=== PATIENT | male | born 1935 | race Caucasian/White ===

== ENCOUNTER 2016-04-30 22:04 | Inpatient (IN) | payer MEDICARE, OTHER ==
[~2016-04-30] VITALS: Ht 170.2 cm; Wt 100.3 kg
[~2016-04-30 22:04] MED LIST: AMOX1TAB61 PO; CARV12.52 PO; DIGO250T PO; GLIM4TAB2 PO; LISI-334 PO; METF500T4 PO; WARF5TAB7 PO; ZOLP5TAB4 PO
--- NOTE | 2016-04-30 23:35 | PHYS DOC ---
Past Medical History Past Medical History: A-Fib, Diabetes-Type II Past Surgical History: Pacemaker Alcohol Use: Heavy Drug Use: None Adult General Chief Complaint Chief Complaint: MECHANICAL FALL HPI HPI Patient is a 80 year old female who presents with frequent falls. Per family, patient fell 4 times at home today due to weakness. Patient reports that he believes he passed out a couple days times. He denies any pain at this time. He says he did not hurt himself when he fell. He does report some shortness of breath recently, although not at this particular time. Per EMS, patient's glucose was 58 on arrival; he was given D50 with subsequent improvement. No other acute complaints. Review of Systems Review of Systems Constitutional: Frequent falls. Denies fever or chills Eyes: Denies change in visual acuity or eye pain HENT: Denies nasal congestion or sore throat Respiratory: Intermittent shortness of breath Cardiovascular: Denies chest pain GI: Denies abdominal pain, nausea, vomiting, bloody stools or diarrhea : Denies dysuria or hematuria Musculoskeletal: Denies back pain or joint pain Integument: Denies rash or skin lesions Neurologic: Denies headache, focal weakness or sensory changes Current Medications Current Medications Current Medications Medications (Trade) Dose Ordered Sig/Jos Start Time Stop Time Status Last Admin Dose Admin Calcium Gluconate 1,000 mg 1X ONCE 05/01/16 02:30 05/01/16 02:31 DC 05/01/16 02:30 1,000 MG Dextrose 25 gm 1X ONCE 05/01/16 02:30 05/01/16 02:31 DC 05/01/16 02:38 25 GM Furosemide (Lasix) 40 mg 1X ONCE 05/01/16 02:30 05/01/16 02:31 DC 05/01/16 02:47 40 MG Insulin Human Regular (Novolin R Vial) 10 unit 1X ONCE 05/01/16 02:30 05/01/16 02:31 DC 05/01/16 02:37 10 UNIT Allergies Allergies Allergies Coded Allergies Type Severity Reaction Last Updated Verified No Known Drug Allergies 08/29/13 No Physical Exam Physical Exam Constitutional: Well developed, well nourished, no acute distress, non-toxic appearance HENT: Normocephalic, atraumatic, bilateral external ears normal Eyes: EOMI, conjunctiva normal, no discharge Neck: Normal range of motion, no stridor Cardiovascular: Heart rate normal, regular rhythm, no murmur Lungs & Thorax: Bilateral breath sounds clear to auscultation Abdomen: Bowel sounds normal, soft, non-distended, no TTP Skin: Warm, dry, no erythema, no rash Back: No midline tenderness, no stepoff or deformity Extremities: No obvious deformity. BLE edema Neurologic: Alert and oriented X 3, speech slightly garbled but family reports this is baseline, motor strength and sensation to light touch intact and symmetrical, no gross deficits noted Current Patient Data Vital Signs Vital Signs Date Time Temp Pulse Resp B/P Pulse Ox O2 Delivery O2 Flow Rate FiO2 05/01/16 01:04 92 20 121/62 96 Room Air 04/30/16 22:10 97.5 97.5 Lab Values Laboratory Tests Test 04/30/16 02:45 04/30/16 22:55 05/01/16 00:20 05/01/16 02:28 Urine Collection Type Unknown Urine Color Yellow Urine Clarity Clear Urine pH 5.0 Urine Specific [place] 1.020 Urine Protein Negativemg/dL (NEG-TRACE) Urine Glucose (UA) Negativemg/dL (NEG) Urine Ketones (Stick) Negativemg/dL (NEG) Urine Blood Large (NEG) Urine Nitrite Negative (NEG) Urine Bilirubin Negative (NEG) Urine Urobilinogen Dipstick 0.2mg/dL (0.2 mg/dL) Urine Leukocyte Esterase Negative (NEG) Urine RBC >40/HPF (0-2) Urine WBC 1-4/HPF (0-4) Urine Squamous Epithelial Cells Occ/LPF Urine Bacteria 0/HPF (0-FEW) Glucose (Fingerstick) 111mg/dL (70-99) H 58mg/dL (70-99) L White Blood Count 7.7x10^3/uL (4.0-11.0) Red Blood Count 3.79x10^6/uL (4.30-5.70) L Hemoglobin 11.0g/dL (13.0-17.5) L Hematocrit 34.4% (39.0-53.0) L Mean Corpuscular Volume 91fL (79-100) Mean Corpuscular Hemoglobin 29pg (25-35) Mean Corpuscular Hemoglobin Concent 32g/dL (31-37) Red Cell Distribution Width 17.1% (11.5-14.5) H Platelet Count 151x10^3/uL (140-400) Neutrophils (%) (Auto) 75% (31-73) H Lymphocytes (%) (Auto) 12% (24-48) L Monocytes (%) (Auto) 11% (0-9) H Eosinophils (%) (Auto) 1% (0-3) Basophils (%) (Auto) 1% (0-3) Neutrophils # (Auto) 5.7x10^3uL (1.8-7.7) Lymphocytes # (Auto) 0.9x10^3/uL (1.0-4.8) L Monocytes # (Auto) 0.9x10^3/uL (0.0-1.1) Eosinophils # (Auto) 0.1x10^3/uL (0.0-0.7) Basophils # (Auto) 0.1x10^3/uL (0.0-0.2) Sodium Level 151mmol/L (136-145) H Potassium Level 5.6mmol/L (3.5-5.1) H Chloride Level 116mmol/L (98-107) H Carbon Dioxide Level 26mmol/L (21-32) Anion Gap 9 (6-14) Blood Urea Nitrogen 34mg/dL (8-26) H Creatinine 1.9mg/dL (0.7-1.3) H Estimated GFR (Cockcroft-Gault) 34.4 Glucose Level 93mg/dL (70-99) Calcium Level 8.5mg/dL (8.5-10.1) Total Bilirubin 1.0mg/dL (0.2-1.0) Direct Bilirubin 0.3mg/dL (0.0-0.2) H Aspartate Amino Transferase (AST) 27U/L (15-37) Alanine Aminotransferase (ALT) 20U/L (16-63) Alkaline Phosphatase 56U/L (46-116) Troponin I Quantitative 0.025ng/mL (0.000-0.055) XU-Yyp-A-Type Natriuretic Peptide 8241pg/mL (0-449) H Total Protein 6.8g/dL (6.4-8.2) Albumin 3.6g/dL (3.4-5.0) Thyroid Stimulating Hormone (TSH) 0.916uIU/mL (0.358-3.74) Laboratory Tests 05/01/16 00:20 Laboratory Tests 05/01/16 00:20 EKG EKG EKG (my read): Paced rhythm, rate 80, LAD, no acute ischemic changes Radiology/Procedures Radiology/Procedures CT head/c-spine: IMPRESSION No acute intracranial abnormality. No acute fracture or subluxation of the cervical spine. CXR (my read): Cardiomegaly, low lung volumes Course & Med Decision Making Course & Med Decision Making Pertinent Labs and Imaging studies reviewed. (See chart for details) Patient is 80-year-old male presents with frequent falls, intermittent shortness of breath. Given age will obtain CT head and C-spine to rule out significant injury from falls. Will also check EKG, chest x-ray, labs. Labs notable for hyperkalemia, hypernatremia, elevated BNP. EKG and chest x-ray results. Calcium gluconate, insulin and D50, Lasix ordered. Discussed with Dr. Lopez, will admit under his care for further evaluation and treatment. Cardiology consult entered. Dragon Disclaimer Dragon Disclaimer This electronic medical record was generated, in whole or in part, using a voice recognition dictation system. Departure Departure Impression: Primary Impression: Recurrent falls Additional Impressions: CHF (congestive heart failure) Hyperkalemia Hypernatremia Disposition: ADMITTED INPATIENT Admitting Physician: Checo Lopez Condition: GUARDED Referrals: HUGO BANERJEE Jr, MD (PCP) Problem Qualifiers STALIN LECHUGA MD Apr 30, 2016 23:36
[2016-05-01 00:32] LABS: BASO # 0.1 x10^3/uL (0.0-0.2); BASO % 1 % (0-3); EOS % 1 % (0-3); HEMATOCRIT 34.4 % (39.0-53.0); LYMPH # 0.9 x10^3/uL (1.0-4.8); LYMPH % 12 % (24-48); MEAN CORPUSCULAR HEMOGLOBIN 29 pg (25-35); MEAN CORPUSCULAR HGB CONC 32 g/dL (31-37); MEAN CORPUSCULAR VOLUME 91 fL (79-100); MONO % 11 % (0-9); NEUT % 75 % (31-73); PLATELET COUNT 151 x10^3/uL (140-400); RED BLOOD COUNT 3.79 x10^6/uL (4.30-5.70); RED CELL DISTRIBUTION WIDTH 17.1 % (11.5-14.5); WHITE BLOOD COUNT 7.7 x10^3/uL (4.0-11.0)
--- NOTE | 2016-05-01 00:34 | RAD ---
PROCEDURE CT head and cervical spine without contrast. HISTORY Fell 4 times today. Head and neck pain. COMPARISON CT head without contrast August 29, 2013. TECHNIQUE Helical CT imaging of the brain and of the cervical spine is performed without IV contrast. PQRS: One or more the following individualized dose reduction techniques were utilized for the study: 1. Automated exposure control. 2. Adjustment of the mA and/or kV according to patient size. 3. Use of iterative reconstruction technique. FINDINGS No acute calvarial fracture. Visualized globes and orbits are intact. The mastoid air cells are clear. Mucosal thickening bilateral ethmoid and maxillary sinuses. No air-fluid level. No midline shift or mass effect. No extra-axial fluid collection or intraparenchymal hemorrhage. Gonzalez-white matter differentiation is preserved. Basilar cisterns are patent. The ventricles and sulci are prominent, consistent with age-related cerebral atrophy. There is periventricular white matter hypoattenuation, nonspecific but commonly due to chronic small vessel ischemic disease in a patient of this age. No acute fracture or subluxation of the cervical spine. Mild motion artifact degrades image quality. Disc space narrowing and degenerative endplate spurring. Posterior disc osteophyte complex of C6/C7 produces central canal stenosis that is probably mild. Mild multilevel facet hypertrophy contributes to neural foraminal narrowing. No high-grade narrowing is seen. The vertebral body height and alignment are maintained. Visualized lung apices are clear. Soft tissues of the neck unremarkable. IMPRESSION No acute intracranial abnormality. No acute fracture or subluxation of the cervical spine. Electronically signed by: Donald Barlow MD (May 01, 2016 00:33:28)
[2016-05-01 00:56] LABS: CALCIUM 8.5 mg/dL (8.5-10.1); CREATININE 1.9 mg/dL (0.7-1.3); GFR 34.4; POTASSIUM 5.6 mmol/L (3.5-5.1)
[2016-05-01 01:01] LABS: ALBUMIN 3.6 g/dL (3.4-5.0); DIRECT BILIRUBIN 0.3 mg/dL (0.0-0.2); TOTAL PROTEIN 6.8 g/dL (6.4-8.2)
[2016-05-01] MEDS ORDERED: FUROSEMIDE 40 MG/4 ML VIAL IVP ONE (02:30)
[2016-05-01] MEDS ORDERED: DEXTROSE 50% 25 GM / 50ML DISP.SYRIN. IV ONE (02:30)
[2016-05-01] MEDS ORDERED: CALCIUM GLUCONATE 1,000 MG/10 ML VIAL IVP ONE (02:30)
[2016-05-01] MEDS ORDERED: INSULIN REGULAR 100 UNIT/ML 10ML VIAL. IV ONE (02:30)
[2016-05-01] MEDS ORDERED: MORPHINE SULFATE 2 MG/ML DISP.SYRIN. IV PRN (02:45)
[2016-05-01] MEDS ORDERED: DEXTROSE 50% 25 GM / 50ML DISP.SYRIN. IV PRN (02:45)
[2016-05-01] MEDS ORDERED: ONDANSETRON PF 4 MG/2 ML VIAL. IV PRN (02:45)
[2016-05-01] MEDS ORDERED: ACETAMINOPHEN 325 MG TABLET. PO PRN (02:45)
[2016-05-01 03:04] LABS: BILIRUBIN,URINE NEGATIVE (NEG); GLUCOSE,URINE NEGATIVE (NEG); NITRITE,URINE NEGATIVE (NEG); PROTEIN,URINE NEGATIVE (NEG-TRACE); UROBILINOGEN,URINE 0.2 mg/dL (0.2 mg/dL)
[2016-05-01 03:26] LABS: BACTERIA,URINE 0 /HPF (0-FEW); RBC,URINE >40 /HPF (0-2); SQUAMOUS EPITHELIAL CELL,UR OCC /LPF
[2016-05-01 05:16] VITALS: BP 141/87
[2016-05-01 07:00] VITALS: BP 131/74
--- NOTE | 2016-05-01 07:27 | RAD ---
Portable chest, 05/01/2016: History: Shortness of breath Comparison is made to a study from 06/14/2008. A left-sided AICD remains in place extending into the right ventricle. The heart is enlarged. The depth of inspiration is suboptimal. No pulmonary consolidation is seen. There is no evidence of pleural fluid. IMPRESSION: 1. Suboptimal inspiration. 2. Mild cardiomegaly
[2016-05-01] MEDS: INSULIN ASPART 300 UNITS/3 ML INSULN.PEN SQ SCH ×3 (08:00→18:25)
--- NOTE | 2016-05-01 08:34 | EKG ---
[facility] [address] [place] [address] Test Date: 2016-04-30 Test Time: 23:49:10 Pat Name: VALERIA LUQUE Department: Room: Gender: M Vest Backer: : 1935 Requested By: STALIN LECHUGA Order Number: [id number] Reading MD: Measurements Intervals Hunter Rate: 80 P: SC: QRS: -71 QRSD: 180 T: 91 QT: 432 QTc: 502 Interpretive Statements REGULAR RHYTHM, NO P WAVE FOUND ABNORMAL LEFT AXIS DEVIATION NON SPECIFIC INTRAVENTRICULAR BLOCK QRS(T) CONTOUR ABNORMALITY CONSIDER ANTEROSEPTAL MYOCARDIAL DAMAGE ABNORMAL ECG RI6.01 Compared to ECG 08/29/2013 19:20:20 Left-axis deviation now present Atrial fibrillation no longer present T-wave abnormality no longer present Possible ischemia no longer present Left anterior fascicular block no longer present
--- NOTE | 2016-05-01 08:47 | ACF ---
Admit Criteria Forms Admit Criteria Forms Admit Criteria Forms HEART FAILURE: COMMON COMPLICATIONS Clinical Indications for Inpatient Care (Place 'X' for any and all applicable criteria): Ongoing inpatient care may be indicated for heart failure with ANY ONE of the following (1)(2)(3)(4)(5): [ ]I. Ongoing need for care for primary condition requiring frequent therapy adjustments because of changes in cardiac function (eg, drug dosage changes for drugs that are renally metabolized) [ ]II. New-onset heart failure [ ]III. Heart failure with decreased urine output not responsive to attempts to optimize volume status [ ]IV. Acute cardiac ischemia causing or associated with failure [X]V. Complications of heart failure, including ANY ONE of the following: [ ]a) Pericardial effusion [ ]b) Symptomatic pleural effusion [ ]c) O2 saturation <90% or PO2 < 60 mm Hg (8.0 kPa) on room air or require baseline supplemental O2 [ ]d) Tachypnea [X]e) Dyspnea [ ]f) Syncope [ ]g) Change in mental status [ ]h) Acute renal insufficiency that is severe (reduction of more than 50% in estimated glomerular filtration rate from baseline) or progressive reduction of more than 25% in estimated glomerular filtration rate from baseline, with creatinine continuing to rise) [ ]i) Hemodynamic instability [ ]j) Anasarca [ ]k) Clinically significant metabolic abnormalities due to heart failure (eg, new-onset metabolic acidosis) Extended stay beyond goal length of stay for primary condition may be needed until ALL of the following are present(1)(3): [ ]a) Stable and effective diuretic regimen established (or patient on stable dialysis regimen if in chronic renal failure) [ ]b) Breathing comfortably at rest [ ]c) Saturation of arterial oxygen greater than 90% or at acceptable baseline [ ]d) Pulmonary edema absent or improved [ ]e) Hemodynamic stability [ ]f) Volume status acceptable on oral medication [ ]g) Peripheral or sacral edema absent or improved [ ]h) Renal function stable and manageable at a lower level of care [ ]i) Complications (eg, pleural effusion) resolved or manageable at a lower level of care [ ]j) Patient or caregiver has received written discharge instructions or educational material addressing activity level, diet, discharge medications, follow-up appointment, weight monitoring, and what to do if symptoms worsen The original [employer] content created by [employer] has been revised. The portions of the content which have been revised are identified through the use of italic text or in bold, and [facility] has neither reviewed nor approved the modified material.All other unmodified content is copyright [facility] [employer] [place] Please see references footnoted in the original [facility] [employer] edition 2016 LINDSEY JAMA May 01, 2016 08:47
--- NOTE | 2016-05-01 10:34 | PDOC2 ---
[employer]ONG [employer] 05/01/16 1034: CARDIAC CONSULT DATE OF CONSULT Date of Consult DATE: 05/01/16 TIME: 10:23 REASON FOR CONSULT Reason for Consult: CHF REFERRING PHYSICIAN Referring Physician: Dr. Abelardo Lock SOURCE Source: Patient (who is a poor historian) HISTORY OF PRESENT ILLNESS HISTORY OF PRESENT ILLNESS 80 year old male with reportedly 4 episodes of falling/syncope yesterday. He is unaware of what happened and can not provide further details. NT-proBNP 8241 and associated with Cr of 1.9 and treated with furosemide in the ER. Troponin level not consistent with AMI. CXR without CHF. Reason for Visit: falls PAST MEDICAL HISTORY Cardiovascular: AFIB, Other (PPM - brand unknown) CENTRAL NERVOUS SYSTEM: Dementia Renal/: UTI Endocrine: Diabetes PAST SURGICAL HISTORY Past Surgical History: Pacemaker, Other (cystoscopy with circumsion - 08/2013) FAMILY HISTORY Family History: Family History Unknown SOCIAL HISTORY Smoke: Quit ALCOHOL: occassional CURRENT MEDICATIONS CURRENT MEDICATIONS Current Medications Medications (Trade) Dose Ordered Sig/Jos Route PRN Reason Start Time Stop Time Status Last Admin Dose Admin Calcium Gluconate 1,000 mg 1X ONCE IVP 05/01/16 02:30 05/01/16 02:31 DC 05/01/16 02:30 Insulin Human Regular (Novolin R Vial) 10 unit 1X ONCE IV 05/01/16 02:30 05/01/16 02:31 DC 05/01/16 02:37 Dextrose 25 gm 1X ONCE IV 05/01/16 02:30 05/01/16 02:31 DC 05/01/16 02:38 Furosemide (Lasix) 40 mg 1X ONCE IVP 05/01/16 02:30 05/01/16 02:31 DC 05/01/16 02:47 Dextrose 12.5 gm PRN Q15MIN PRN IV SEE COMMENTS 05/01/16 02:45 05/01/16 07:24 ALLERGIES ALLERGIES: Coded Allergies: No Known Drug Allergies (Unverified , 08/29/13) ROS Review of System 14 point review attempted - pt without significant recall of events; denies CP; ? dyspnea PHYSICAL EXAM General: Alert, Cooperative, No acute distress, Other (unkempt in appearance) HEENT: Atraumatic Lungs: Clear to auscultation (anteriorly) Heart: Normal S1, Normal S2, Other (left pectoral device- tele V paced) Abdomen: Normal bowel sounds, Soft, Other (obese abdomen) Extremities: No edema, Normal pulses Skin: No rashes Neuro: Normal speech Psych/Mental Status: Mood NL MUSCULOSKELETAL: Osteoarthritic changes both hands VITALS VITALS Vital Signs Date Time Temp Pulse Resp B/P Pulse Ox O2 Delivery O2 Flow Rate FiO2 05/01/16 07:00 97.9 80 20 131/74 97 Room Air 97.9 LABS Lab: Laboratory Tests Test 04/30/16 22:55 05/01/16 00:20 05/01/16 02:28 05/01/16 07:13 Glucose (Fingerstick) 111mg/dL (70-99) 58mg/dL (70-99) 28mg/dL (70-99) White Blood Count 7.7x10^3/uL (4.0-11.0) Red Blood Count 3.79x10^6/uL (4.30-5.70) Hemoglobin 11.0g/dL (13.0-17.5) Hematocrit 34.4% (39.0-53.0) Mean Corpuscular Volume 91fL (79-100) Mean Corpuscular Hemoglobin 29pg (25-35) Mean Corpuscular Hemoglobin Concent 32g/dL (31-37) Red Cell Distribution Width 17.1% (11.5-14.5) Platelet Count 151x10^3/uL (140-400) Neutrophils (%) (Auto) 75% (31-73) Lymphocytes (%) (Auto) 12% (24-48) Monocytes (%) (Auto) 11% (0-9) Eosinophils (%) (Auto) 1% (0-3) Basophils (%) (Auto) 1% (0-3) Neutrophils # (Auto) 5.7x10^3uL (1.8-7.7) Lymphocytes # (Auto) 0.9x10^3/uL (1.0-4.8) Monocytes # (Auto) 0.9x10^3/uL (0.0-1.1) Eosinophils # (Auto) 0.1x10^3/uL (0.0-0.7) Basophils # (Auto) 0.1x10^3/uL (0.0-0.2) Sodium Level 151mmol/L (136-145) Potassium Level 5.6mmol/L (3.5-5.1) Chloride Level 116mmol/L (98-107) Carbon Dioxide Level 26mmol/L (21-32) Anion Gap 9 (6-14) Blood Urea Nitrogen 34mg/dL (8-26) Creatinine 1.9mg/dL (0.7-1.3) Estimated GFR (Cockcroft-Gault) 34.4 Glucose Level 93mg/dL (70-99) Calcium Level 8.5mg/dL (8.5-10.1) Total Bilirubin 1.0mg/dL (0.2-1.0) Direct Bilirubin 0.3mg/dL (0.0-0.2) Aspartate Amino Transf (AST/SGOT) 27U/L (15-37) Alanine Aminotransferase (ALT/SGPT) 20U/L (16-63) Alkaline Phosphatase 56U/L (46-116) Troponin I Quantitative 0.025ng/mL (0.000-0.055) JB-Udy-N-Type Natriuretic Peptide 8241pg/mL (0-449) Total Protein 6.8g/dL (6.4-8.2) Albumin 3.6g/dL (3.4-5.0) Thyroid Stimulating Hormone (TSH) 0.916uIU/mL (0.358-3.74) Test 05/01/16 07:25 05/01/16 08:32 05/01/16 09:00 Glucose (Fingerstick) 40mg/dL (70-99) 131mg/dL (70-99) Troponin I Quantitative 0.020ng/mL (0.000-0.055) IMAGES IMAGES CXR: 1. Suboptimal inspiration. 2. Mild cardiomegaly EKG EKG V paced; probably underlying atrial fib; no clear p waves or fib waves; no acute changes ASSESSMENT/PLAN ASSESSMENT/PLAN 1. falls ? mechanical vs syncope 2. ? dyspnea elevated NT-proBNP in the setting of ? CKD was treated with IV furosemide in the ER CXR not consistent with acute CHF echo to evaluate LV function requesting records from [facility] 3. DM, II hypoglycemic on EMS presentation suspect this is likely etiology of issues per primary service 4. PPM brand unknown records requested interrogate if brand can be determined 5. hypernatremia and hyperkalemia associated with Cr of 1.9 Problems: MANJULA MARTÍNEZ MD 05/02/16 0925: CARDIAC CONSULT ALLERGIES ALLERGIES: Coded Allergies: No Known Drug Allergies (Unverified , 08/29/13) ASSESSMENT/PLAN ASSESSMENT/PLAN Late entry for 05/01/2016. Pt seen and examined on 05/01/2016. Agree with above MEDICAL LABORATORY MANAGER note. 80 y.o man presenting with falls. Etiology not yet clear. On exam he appears to be in poor condition, probable failure to thrive. He appears volume overloaded with rales in his lung ayers. Echo reviewed. Mild LV dysfunction. Suspect cardiorenal syndrome, precipitating event is unclear. Await nephrology/urology w/u. Ok with IVF. Problems: HONG FUNG APRN May 01, 2016 10:34 MANJULA MARTÍNEZ MD May 02, 2016 09:25
[2016-05-01 10:50] VITALS: BP 128/65
--- NOTE | 2016-05-01 11:12 | PDOC1 ---
History and Physical Date of Admission Date of Admission DATE: 05/01/16 TIME: 11:06 Identification/Chief Complaint Chief Complaint falls Source Source: Chart review, Patient History of Present Illness History of Present Illness MR. Razo, is a 80 year old male admit for syncope, confusion and frequent falls. He lives with his nephew, and fell 4 times at home today due to weakness. He was confused at times, he reports not having a glucometer at home and not checking his blood sugars he feels like he "is not doing well at home" and I asked if he had looked at assisted living, and he offered "or I need to live in a usp" marked confused earlier this AM, blood sugar 26 more alert, now oriented with normal blood sugar Past Medical History Cardiovascular: AFIB, Other (PPM - brand unknown) Pulmonary: No pertinent hx CENTRAL NERVOUS SYSTEM: Dementia Psych: No pertinent hx Renal/: UTI Endocrine: Diabetes Past Surgical History Past Surgical History: Pacemaker, Other (cystoscopy with circumsion - 08/2013) Family History Family History: Family History Unknown Social History Smoke: No ALCOHOL: rare Drugs: None Current Problem List Problem List Problems Medical Problems: (1) CHF (congestive heart failure) Status: Acute (2) CHF (congestive heart failure) Status: Acute (3) Hyperkalemia Status: Acute (4) Hypernatremia Status: Acute (5) Recurrent falls Status: Acute Problems: Current Medications Current Medications Current Medications Calcium Gluconate 1,000 mg 1X ONCE IVP Last administered on 05/01/16 02:30; Start 05/01/16 at 02:30; Stop 05/01/16 at 02:31; Status DC Insulin Human Regular (Novolin R Vial) 10 unit 1X ONCE IV Last administered on 05/01/16 02:37; Start 05/01/16 at 02:30; Stop 05/01/16 at 02:31; Status DC Dextrose 25 gm 1X ONCE IV Last administered on 05/01/16 02:38; Start at 02:30; Stop 05/01/16 at 02:31; Status DC Furosemide (Lasix) 40 mg 1X ONCE IVP Last administered on 05/01/16 02:47; Start 05/01/16 at 02:30; Stop 05/01/16 at 02:31; Status DC Ondansetron HCl (Zofran) 4 mg PRN Q8HRS PRN IV NAUSEA/VOMITING; Start 05/01/16 at 02:45; Stop 05/02/16 at 02:44 Morphine Sulfate 2 mg PRN Q2HR PRN IV PAIN; Start 05/01/16 at 02:45; Stop 05/02 at 02:44 Acetaminophen (Tylenol) 650 mg PRN Q4HRS PRN PO FEVER; Start 05/01/16 at 02:45 ; Stop 05/02/16 at 02:44 Insulin Aspart (Novolog) 0-7 UNITS TIDWMEALS SQ ; Start 05/01/16 at 08:00 Dextrose 12.5 gm PRN Q15MIN PRN IV SEE COMMENTS Last administered on 05/01/16t 07:24; Start 05/01/16 at 02:45 Active Scripts Active Augmentin 875-125 Tablet (Amoxicillin/Potassium Clav) 1 Each Tablet 1 Tab PO BID Reported Carvedilol 12.5 Mg Tablet 12.5 Mg PO [place] Warfarin Sodium 5 Mg Tablet 5 Mg PO UNKOWN Lisinopril 20 Mg Tablet 20 Mg PO UNKOWN Zolpidem Tartrate 5 Mg Tablet 5 Mg PO PRN QHS PRN Digoxin 250 Mcg Tablet 250 Mcg PO UNKOWN Glimepiride 4 Mg Tablet 4 Mg PO UNKOWN Metformin Hcl 500 Mg Tablet 500 Mg PO UKNOWN Allergies Allergies: Coded Allergies: No Known Drug Allergies (Unverified , 08/29/13) ROS General: YES: Appetite, Fatigue, Malaise, No: Chills, Night Sweats, Other PSYCHOLOGICAL ROS: YES: Disorientation, Memory difficulties, No: Anxiety, Behavioral Disorder, Concentration difficultie, Decreased libido , Depression, Hallucinations, Hostility, Irritablity, Mood Swings, Obsessive thoughts, Other, Physical abuse, Sexual abuse, Sleep disturbances, Suicidal ideation Eyes: No Blurry vision, No Decreased vision, No Double vision, No Dry eyes, No Excessive tearing, No Eye Pain, No Itchy Eyes, No Loss of vision, No Other, No Photophobia, No Scotomata, No Uses contacts, No Uses glasses HEENT: No: Epistaxis, Heacaches, Hearing change, Nasal congestion, Nasal discharge, Oral lesions, Other, Sinus pain, Sneezing, Snoring, Sore Throat, Tinnitus, Vertigo, Visual Changes, Vocal changes Respiratory: No: Cough, Hemoptysis, Orthopnea, Other, Pleuritic Pain, SOB with excertion, Shortness of breath, Sputum Changes, Stridor, Tachypnea, Wheezing Cardiovascular: No Chest Pain, No Edema, No Lt Headedness, No Orthopnea, No Other, No Palpitations, No Paroxysmal Noc. Dyspnea Gastrointestinal: Yes Nausea, No Abdominal Pain, No Constipation, No Diarrhea, No Hematochezia, No Melena, No Other, No Vomiting Genitourinary: No , No , No , No , No , No , No , No Discharge, No Dysuria, No Flank Pain, No Frequency, No Hematuria, No Incontinence, No Other, No Pain, No Retention, No Urgency Musculoskeletal: Yes Gait Disturbance, Yes Joint Pain, Yes Joint Stiffness, No Joint Swelling, No Muscle Pain, No Muscular Weakness, No Other, No Pain In :, No Swelling In: Neurological: Yes Confusion, Yes Gait Disturbance, No Behavorial Changes, No Bowel/Bladder ControlChng, No Dizziness, No Headaches, No Impaired Coord/balance, No Memory Loss, No Numbness/Tingling, No Other, No Seizures, No Speech Problems, No Tremors, No Visual Changes, No Weakness Skin: No Acne, No Dry Skin, No Eczema, No Hair Changes, No Lumps, No Mole Changes, No Mottling, No Nail Changes, No Other, No Pruritus, No Rash, No Skin Lesion Changes Physical Exam General: Alert, Oriented X3, Cooperative, No acute distress HEENT: Atraumatic, PERRLA, EOMI, Mucous membr. moist/pink Lungs: Clear to auscultation Extremities: No clubbing, No edema, Normal pulses Skin: No rashes, No significant lesion Neuro: Normal speech, Sensation intact, Other (gen weakness) Psych/Mental Status: Mood NL Vitals Vitals Vital Signs Date Time Temp Pulse Resp B/P Pulse Ox O2 Delivery O2 Flow Rate FiO2 05/01/16 07:00 97.9 80 20 131/74 97 Room Air 97.9 Labs Labs Laboratory Tests Test 04/30/16 02:45 04/30/16 22:55 05/01/16 00:20 05/01/16 02:28 Urine Collection Type Unknown Urine Color Yellow Urine Clarity Clear Urine pH 5.0 Urine Specific Cutler 1.020 Urine Protein Negativemg/dL (NEG-TRACE) Urine Glucose (UA) Negativemg/dL (NEG) Urine Ketones (Stick) Negativemg/dL (NEG) Urine Blood Large (NEG) Urine Nitrite Negative (NEG) Urine Bilirubin Negative (NEG) Urine Urobilinogen Dipstick 0.2mg/dL (0.2 mg/dL) Urine Leukocyte Esterase Negative (NEG) Urine RBC >40/HPF (0-2) Urine WBC 1-4/HPF (0-4) Urine Squamous Epithelial Cells Occ/LPF Urine Bacteria 0/HPF (0-FEW) Glucose (Fingerstick) 111mg/dL (70-99) 58mg/dL (70-99) White Blood Count 7.7x10^3/uL (4.0-11.0) Red Blood Count 3.79x10^6/uL (4.30-5.70) Hemoglobin 11.0g/dL (13.0-17.5) Hematocrit 34.4% (39.0-53.0) Mean Corpuscular Volume 91fL (79-100) Mean Corpuscular Hemoglobin 29pg (25-35) Mean Corpuscular Hemoglobin Concent 32g/dL (31-37) Red Cell Distribution Width 17.1% (11.5-14.5) Platelet Count 151x10^3/uL (140-400) Neutrophils (%) (Auto) 75% (31-73) Lymphocytes (%) (Auto) 12% (24-48) Monocytes (%) (Auto) 11% (0-9) Eosinophils (%) (Auto) 1% (0-3) Basophils (%) (Auto) 1% (0-3) Neutrophils # (Auto) 5.7x10^3uL (1.8-7.7) Lymphocytes # (Auto) 0.9x10^3/uL (1.0-4.8) Monocytes # (Auto) 0.9x10^3/uL (0.0-1.1) Eosinophils # (Auto) 0.1x10^3/uL (0.0-0.7) Basophils # (Auto) 0.1x10^3/uL (0.0-0.2) Sodium Level 151mmol/L (136-145) Potassium Level 5.6mmol/L (3.5-5.1) Chloride Level 116mmol/L (98-107) Carbon Dioxide Level 26mmol/L (21-32) Anion Gap 9 (6-14) Blood Urea Nitrogen 34mg/dL (8-26) Creatinine 1.9mg/dL (0.7-1.3) Estimated GFR (Cockcroft-Gault) 34.4 Glucose Level 93mg/dL (70-99) Calcium Level 8.5mg/dL (8.5-10.1) Total Bilirubin 1.0mg/dL (0.2-1.0) Direct Bilirubin 0.3mg/dL (0.0-0.2) Aspartate Amino Transf (AST/SGOT) 27U/L (15-37) Alanine Aminotransferase (ALT/SGPT) 20U/L (16-63) Alkaline Phosphatase 56U/L (46-116) Troponin I Quantitative 0.025ng/mL (0.000-0.055) GB-Llm-A-Type Natriuretic Peptide 8241pg/mL (0-449) Total Protein 6.8g/dL (6.4-8.2) Albumin 3.6g/dL (3.4-5.0) Thyroid Stimulating Hormone (TSH) 0.916uIU/mL (0.358-3.74) Test 05/01/16 07:13 05/01/16 07:25 05/01/16 08:32 05/01/16 09:00 Glucose (Fingerstick) 28mg/dL (70-99) 40mg/dL (70-99) 131mg/dL (70-99) Magnesium Level 2.3mg/dL (1.8-2.4) Troponin I Quantitative 0.020ng/mL (0.000-0.055) Laboratory Tests Test 04/30/16 22:55 05/01/16 00:20 05/01/16 02:28 05/01/16 07:13 Glucose (Fingerstick) 111mg/dL (70-99) 58mg/dL (70-99) 28mg/dL (70-99) White Blood Count 7.7x10^3/uL (4.0-11.0) Red Blood Count 3.79x10^6/uL (4.30-5.70) Hemoglobin 11.0g/dL (13.0-17.5) Hematocrit 34.4% (39.0-53.0) Mean Corpuscular Volume 91fL (79-100) Mean Corpuscular Hemoglobin 29pg (25-35) Mean Corpuscular Hemoglobin Concent 32g/dL (31-37) Red Cell Distribution Width 17.1% (11.5-14.5) Platelet Count 151x10^3/uL (140-400) Neutrophils (%) (Auto) 75% (31-73) Lymphocytes (%) (Auto) 12% (24-48) Monocytes (%) (Auto) 11% (0-9) Eosinophils (%) (Auto) 1% (0-3) Basophils (%) (Auto) 1% (0-3) Neutrophils # (Auto) 5.7x10^3uL (1.8-7.7) Lymphocytes # (Auto) 0.9x10^3/uL (1.0-4.8) Monocytes # (Auto) 0.9x10^3/uL (0.0-1.1) Eosinophils # (Auto) 0.1x10^3/uL (0.0-0.7) Basophils # (Auto) 0.1x10^3/uL (0.0-0.2) Sodium Level 151mmol/L (136-145) Potassium Level 5.6mmol/L (3.5-5.1) Chloride Level 116mmol/L (98-107) Carbon Dioxide Level 26mmol/L (21-32) Anion Gap 9 (6-14) Blood Urea Nitrogen 34mg/dL (8-26) Creatinine 1.9mg/dL (0.7-1.3) Estimated GFR (Cockcroft-Gault) 34.4 Glucose Level 93mg/dL (70-99) Calcium Level 8.5mg/dL (8.5-10.1) Total Bilirubin 1.0mg/dL (0.2-1.0) Direct Bilirubin 0.3mg/dL (0.0-0.2) Aspartate Amino Transf (AST/SGOT) 27U/L (15-37) Alanine Aminotransferase (ALT/SGPT) 20U/L (16-63) Alkaline Phosphatase 56U/L (46-116) Troponin I Quantitative 0.025ng/mL (0.000-0.055) ZN-Lrh-H-Type Natriuretic Peptide 8241pg/mL (0-449) Total Protein 6.8g/dL (6.4-8.2) Albumin 3.6g/dL (3.4-5.0) Thyroid Stimulating Hormone (TSH) 0.916uIU/mL (0.358-3.74) Test 05/01/16 07:25 05/01/16 08:32 05/01/16 09:00 Glucose (Fingerstick) 40mg/dL (70-99) 131mg/dL (70-99) Magnesium Level 2.3mg/dL (1.8-2.4) Troponin I Quantitative 0.020ng/mL (0.000-0.055) VTE Prophylaxis Ordered VTE Prophylaxis Devices: No VTE Pharmacological Prophylaxi: Yes Assessment/Plan Assessment/Plan falls, syncope metabolic encephalopathy, acute, now improved with electrolyte management hypoglycemia, he has not been checking at home, acute on chronic CKD, vasomotor hyperkalemia, hypernatremia, consult renal repeat labs in PM obeisty, BMI 34.6 BNP 8k, acute diastolic CHF, fabrice gauthier CV team, echo ordered, trop trend Dm2, poor control admit MARISOL RAM MD May 01, 2016 11:12
[2016-05-01] MEDS: IV NORMAL SALINE 1000ML BAG 1,000 ML IV SCH (13:13)
[2016-05-01] MEDS ORDERED: LIDOCAINE 2% JELLY 6ML IN APPLICATOR. MM ONE (13:15)
[2016-05-01] MEDS ORDERED: ENOXAPARIN 40 MG/0.4 ML DISP.SYRIN. SQ SCH (14:00)
[2016-05-01] MEDS ORDERED: APIX5TAB PO (14:12)
[2016-05-01 15:00] VITALS: BP 138/73
[2016-05-01] MEDS ORDERED: TAMSULOSIN 0.4 MG CAP.ER.24H. PO ONE (15:00)
--- NOTE | 2016-05-01 15:06 | PDOC2 ---
CONSULT Date of Consult Date of Consult DATE: 05/01/16 TIME: 15:01 Reason for Consult Reason for Consult: PRANAY Referring Physician Referring Physician: HOLLY Identification/Chief Complaint Chief Complaint FALLS Source Source: Chart review History of Present Illness Reason for Visit: THIS IS A 80 YR OLD ADMITTED WITH FALLS. LABS SHOWED A K OF 5.6 AND CR OF 1.9 C/ W PRANAY. HE DOES HAVE CKD STAGE 3 WITH CR OF 1.1-1.3 IN THE PAST. ALSO NOTED TO HAVE OBSTRUCTIVE UROPATHY IN THE PAST FOR WHICH HE HAS SEEN UROLOGY AND HE HAD A MORRIS IN PLACE FOR A WHILE. CURRENTLY STATES THAT HE NEEDS TO URINATE NEARLY EVERY HOUR. HE DID HAVE A HX OF PHIMOSIS FOR WHICH HE REQUIRED A DORSAL SLIT. XRAY IS NEG FOR CHF Past Medical History Cardiovascular: AFIB, Other (PPM - brand unknown) Pulmonary: No pertinent hx CENTRAL NERVOUS SYSTEM: Dementia Psych: No pertinent hx Renal/: Chronic renal insuff, UTI Endocrine: Diabetes Past Surgical History Past Surgical History: Pacemaker, Other (cystoscopy with circumsion - 08/2013) Family History Family History: Family History Unknown Social History No ALCOHOL: rare Drugs: None Current Problem List Problem List Problems Medical Problems: (1) CHF (congestive heart failure) Status: Acute (2) CHF (congestive heart failure) Status: Acute (3) Hyperkalemia Status: Acute (4) Hypernatremia Status: Acute (5) Recurrent falls Status: Acute Current Medications Current Medications Current Medications Calcium Gluconate 1,000 mg 1X ONCE IVP Last administered on 05/01/16 02:30; Start 05/01/16 at 02:30; Stop 05/01/16 at 02:31; Status DC Insulin Human Regular (Novolin R Vial) 10 unit 1X ONCE IV Last administered on 05/01/16 02:37; Start 05/01/16 at 02:30; Stop 05/01/16 at 02:31; Status DC Dextrose 25 gm 1X ONCE IV Last administered on 05/01/16 02:38; Start at 02:30; Stop 05/01/16 at 02:31; Status DC Furosemide (Lasix) 40 mg 1X ONCE IVP Last administered on 05/01/16 02:47; Start 05/01/16 at 02:30; Stop 05/01/16 at 02:31; Status DC Ondansetron HCl (Zofran) 4 mg PRN Q8HRS PRN IV NAUSEA/VOMITING; Start 05/01/16 at 02:45; Stop 05/02/16 at 02:44 Morphine Sulfate 2 mg PRN Q2HR PRN IV PAIN; Start 05/01/16 at 02:45; Stop 05/02 at 02:44 Acetaminophen (Tylenol) 650 mg PRN Q4HRS PRN PO FEVER; Start 05/01/16 at 02:45 ; Stop 05/02/16 at 02:44 Insulin Aspart (Novolog) 0-7 UNITS TIDWMEALS SQ Last administered on 05/01/16 14:41; Start 05/01/16 at 08:00 Dextrose 12.5 gm PRN Q15MIN PRN IV SEE COMMENTS Last administered on 05/01/16 07:24; Start 05/01/16 at 02:45 Enoxaparin Sodium (Lovenox Per Pharmacy Prophylaxis Dosing) 1 each PRN DAILY PRN MC SEE COMMENTS; Start 05/01/16 at 11:15; Stop 05/01/16 at 14:55; Status DC Enoxaparin Sodium 40 mg 40 mg Q24H SQ ; Start 05/01/16 at 14:00; Stop 05/01/16 at 14:55; Status DC Sodium Chloride (Iv Sodium Chloride 0.9% 1000ml Bag) 1,000 ml @ 75 mls/hr [id number] IV Last administered on 05/01/16 13:13; Start 05/01/16 at 11:45 Lidocaine HCl (Glydo (Lidocaine) Jelly) 1 dhara 1X ONCE MM Last administered on 05/01/16 14:37; Start 05/01/16 at 13:15; Stop 05/01/16 at 13:50; Status DC Amoxicillin/ Clavulanate Potassium (Augmentin 875/ 125mg) 1 tab BID PO ; Start 05/01/16 at 21:00; Status UNV Apixaban (Eliquis) 5 mg BID PO ; Start 05/01/16 at 21:00 Carvedilol (Coreg) 12.5 mg BIDWMEALS PO ; Start 05/01/16 at 17:00 Lisinopril (Prinivil) 20 mg DAILY PO ; Start 05/02/16 at 09:00 Metformin HCl (Glucophage) 500 mg DAILY08 PO ; Start 05/02/16 at 08:00 Zolpidem Tartrate (Ambien) 5 mg PRN QHS PRN PO INSOMNIA; Start 05/01/16 at 15: 00 Glimepiride (Amaryl) 4 mg DAILYWBKFT PO ; Start 05/02/16 at 08:00 Tamsulosin HCl (Flomax) 0.4 mg DAILY PO ; Start 05/02/16 at 09:00 Tamsulosin HCl (Flomax) 0.4 mg 1X ONCE PO ; Start 05/01/16 at 15:00; Stop 05/01 at 15:01; Status DC Active Scripts Active Augmentin 875-125 Tablet (Amoxicillin/Potassium Clav) 1 Each Tablet 1 Tab PO BID Reported Eliquis (Apixaban) 5 Mg Tablet 5 Mg PO BID Carvedilol 12.5 Mg Tablet 12.5 Mg PO BID Lisinopril 20 Mg Tablet 20 Mg PO DAILY Zolpidem Tartrate 5 Mg Tablet 5 Mg PO PRN QHS PRN Glimepiride 4 Mg Tablet 4 Mg PO DAILY Metformin Hcl 500 Mg Tablet 500 Mg PO DAILY08 Allergies Allergies: Coded Allergies: No Known Drug Allergies (Unverified , 08/29/13) ROS Review of System UNRELIABLE Physical Exam General: Alert, Cooperative, No acute distress HEENT: Atraumatic, PERRLA Lungs: Clear to auscultation, Normal air movement Heart: Regular rate, Normal S1, Normal S2 Abdomen: Normal bowel sounds, Soft, No tenderness Extremities: No clubbing Skin: No significant lesion Neuro: Other (NO ASYMMETRY. CONFUSED) Psych/Mental Status: Other (CONFUSED) MUSCULOSKELETAL: Other (MUSCLE ATROPHY) Vitals VITALS Vital Signs Date Time Temp Pulse Resp B/P Pulse Ox O2 Delivery O2 Flow Rate FiO2 05/01/16 10:50 97.9 87 20 128/65 96 Room Air 97.9 Labs Labs Laboratory Tests Test 04/30/16 02:45 04/30/16 22:55 05/01/16 00:20 05/01/16 02:28 Urine Collection Type Unknown Urine Color Yellow Urine Clarity Clear Urine pH 5.0 Urine Specific Donnelly 1.020 Urine Protein Negativemg/dL (NEG-TRACE) Urine Glucose (UA) Negativemg/dL (NEG) Urine Ketones (Stick) Negativemg/dL (NEG) Urine Blood Large (NEG) Urine Nitrite Negative (NEG) Urine Bilirubin Negative (NEG) Urine Urobilinogen Dipstick 0.2mg/dL (0.2 mg/dL) Urine Leukocyte Esterase Negative (NEG) Urine RBC >40/HPF (0-2) Urine WBC 1-4/HPF (0-4) Urine Squamous Epithelial Cells Occ/LPF Urine Bacteria 0/HPF (0-FEW) Glucose (Fingerstick) 111mg/dL (70-99) 58mg/dL (70-99) White Blood Count 7.7x10^3/uL (4.0-11.0) Red Blood Count 3.79x10^6/uL (4.30-5.70) Hemoglobin 11.0g/dL (13.0-17.5) Hematocrit 34.4% (39.0-53.0) Mean Corpuscular Volume 91fL (79-100) Mean Corpuscular Hemoglobin 29pg (25-35) Mean Corpuscular Hemoglobin Concent 32g/dL (31-37) Red Cell Distribution Width 17.1% (11.5-14.5) Platelet Count 151x10^3/uL (140-400) Neutrophils (%) (Auto) 75% (31-73) Lymphocytes (%) (Auto) 12% (24-48) Monocytes (%) (Auto) 11% (0-9) Eosinophils (%) (Auto) 1% (0-3) Basophils (%) (Auto) 1% (0-3) Neutrophils # (Auto) 5.7x10^3uL (1.8-7.7) Lymphocytes # (Auto) 0.9x10^3/uL (1.0-4.8) Monocytes # (Auto) 0.9x10^3/uL (0.0-1.1) Eosinophils # (Auto) 0.1x10^3/uL (0.0-0.7) Basophils # (Auto) 0.1x10^3/uL (0.0-0.2) Sodium Level 151mmol/L (136-145) Potassium Level 5.6mmol/L (3.5-5.1) Chloride Level 116mmol/L (98-107) Carbon Dioxide Level 26mmol/L (21-32) Anion Gap 9 (6-14) Blood Urea Nitrogen 34mg/dL (8-26) Creatinine 1.9mg/dL (0.7-1.3) Estimated GFR (Cockcroft-Gault) 34.4 Glucose Level 93mg/dL (70-99) Calcium Level 8.5mg/dL (8.5-10.1) Total Bilirubin 1.0mg/dL (0.2-1.0) Direct Bilirubin 0.3mg/dL (0.0-0.2) Aspartate Amino Transf (AST/SGOT) 27U/L (15-37) Alanine Aminotransferase (ALT/SGPT) 20U/L (16-63) Alkaline Phosphatase 56U/L (46-116) Troponin I Quantitative 0.025ng/mL (0.000-0.055) ZM-Jos-E-Type Natriuretic Peptide 8241pg/mL (0-449) Total Protein 6.8g/dL (6.4-8.2) Albumin 3.6g/dL (3.4-5.0) Thyroid Stimulating Hormone (TSH) 0.916uIU/mL (0.358-3.74) Test 05/01/16 07:13 05/01/16 07:25 05/01/16 08:32 05/01/16 09:00 Glucose (Fingerstick) 28mg/dL (70-99) 40mg/dL (70-99) 131mg/dL (70-99) Magnesium Level 2.3mg/dL (1.8-2.4) Troponin I Quantitative 0.020ng/mL (0.000-0.055) Test 05/01/16 11:52 Glucose (Fingerstick) 192mg/dL (70-99) Laboratory Tests Test 04/30/16 22:55 05/01/16 00:20 05/01/16 02:28 05/01/16 07:13 Glucose (Fingerstick) 111mg/dL (70-99) 58mg/dL (70-99) 28mg/dL (70-99) White Blood Count 7.7x10^3/uL (4.0-11.0) Red Blood Count 3.79x10^6/uL (4.30-5.70) Hemoglobin 11.0g/dL (13.0-17.5) Hematocrit 34.4% (39.0-53.0) Mean Corpuscular Volume 91fL (79-100) Mean Corpuscular Hemoglobin 29pg (25-35) Mean Corpuscular Hemoglobin Concent 32g/dL (31-37) Red Cell Distribution Width 17.1% (11.5-14.5) Platelet Count 151x10^3/uL (140-400) Neutrophils (%) (Auto) 75% (31-73) Lymphocytes (%) (Auto) 12% (24-48) Monocytes (%) (Auto) 11% (0-9) Eosinophils (%) (Auto) 1% (0-3) Basophils (%) (Auto) 1% (0-3) Neutrophils # (Auto) 5.7x10^3uL (1.8-7.7) Lymphocytes # (Auto) 0.9x10^3/uL (1.0-4.8) Monocytes # (Auto) 0.9x10^3/uL (0.0-1.1) Eosinophils # (Auto) 0.1x10^3/uL (0.0-0.7) Basophils # (Auto) 0.1x10^3/uL (0.0-0.2) Sodium Level 151mmol/L (136-145) Potassium Level 5.6mmol/L (3.5-5.1) Chloride Level 116mmol/L (98-107) Carbon Dioxide Level 26mmol/L (21-32) Anion Gap 9 (6-14) Blood Urea Nitrogen 34mg/dL (8-26) Creatinine 1.9mg/dL (0.7-1.3) Estimated GFR (Cockcroft-Gault) 34.4 Glucose Level 93mg/dL (70-99) Calcium Level 8.5mg/dL (8.5-10.1) Total Bilirubin 1.0mg/dL (0.2-1.0) Direct Bilirubin 0.3mg/dL (0.0-0.2) Aspartate Amino Transf (AST/SGOT) 27U/L (15-37) Alanine Aminotransferase (ALT/SGPT) 20U/L (16-63) Alkaline Phosphatase 56U/L (46-116) Troponin I Quantitative 0.025ng/mL (0.000-0.055) PZ-Sao-H-Type Natriuretic Peptide 8241pg/mL (0-449) Total Protein 6.8g/dL (6.4-8.2) Albumin 3.6g/dL (3.4-5.0) Thyroid Stimulating Hormone (TSH) 0.916uIU/mL (0.358-3.74) Test 05/01/16 07:25 05/01/16 08:32 05/01/16 09:00 05/01/16 11:52 Glucose (Fingerstick) 40mg/dL (70-99) 131mg/dL (70-99) 192mg/dL (70-99) Magnesium Level 2.3mg/dL (1.8-2.4) Troponin I Quantitative 0.020ng/mL (0.000-0.055) Assessment/Plan Assessment/Plan IMP PRANAY CR OF 1.9 HYPERKALEMIA CKD STAGE 3 PROB BLADDER OUTLET OBSTRUCTION CONFUSION/DEMENTIA PLAN [facility] UROLOGY CONSULT START IVF'S HOLD ADRIÁN-I LABS IN AM WILL FOLLOW DOMENIC SANTAMARIA MD May 01, 2016 15:06
--- NOTE | 2016-05-01 15:08 | CARD ---
APPROVED REPORT EXAM: Two-dimensional and M-mode echocardiogram with Doppler and color Doppler. Other Information Quality : GoodHR: 80bpm Rhythm : Pacemaker INDICATION Short of air 2D DIMENSIONS RVDd2.5 (2.9-3.5cm)Left Atrium(2D)3.7 (1.6-4.0cm) IVSd1.0 (0.7-1.1cm)Aortic Root(2D)2.8 (2.0-3.7cm) LVDd4.7 (3.9-5.9cm)LVOT Diameter2.2 (1.8-2.4cm) PWd1.0 (0.7-1.1cm)LVDs3.7 (2.5-4.0cm) FS (%) 20.8 %SV43.3 ml LVEF(%)42.4 (>50%) Aortic Valve AoV Peak Alejandro.87.9cm/sAoV VTI19.1cm AO Peak GR.3.1mmHgLVOT Peak Alejandro.70.6cm/s AO Mean GR.2mmHgAVA (VMAX)2.96cm2 Mitral Valve MV E Peak Gr.3mmHgMV E Mean Gr.1mmHg Tricuspid Valve TR P. [id number] Peak Gr.34mmHg Pulmonary Vein S1 Fjsikygv11.2cm/s LEFT VENTRICLE The left ventricle is normal size. There is normal left ventricular wall thickness. Left ventricle sy stolic function is mildly impaired. The Ejection Fraction is 40-45%. Abnormal septal wall motion prob ably from paced rhythm. Left ventricular diastolic function could not be assessed due to paced heart rhythm. RIGHT VENTRICLE The right ventricle is normal size. There is normal right ventricular wall thickness. The right ventr icular systolic function is normal. There is a pacemaker lead in the right ventricle. ATRIA The left atrium is mildly dilated. The right atrium size is normal. The interatrial septum is intact with no evidence for an atrial septal defect or patent foramen ovale as noted on 2-D or Doppler imagi ng. AORTIC VALVE The aortic valve is mildly thickened. Doppler and Color Flow revealed no significant aortic regurgita tion. There is no significant aortic valvular stenosis. MITRAL VALVE The mitral valve leaflets are thickened. There is no evidence of mitral valve prolapse. There is no m itral valve stenosis. Doppler and Color Flow revealed mild mitral regurgitation. TRICUSPID VALVE Doppler and Color Flow revealed moderate tricuspid regurgitation. The pulmonary artery systolic press ure is estimated at 39 mmHg. There is mild pulmonary hypertension. PULMONIC VALVE The pulmonary valve is normal in structure and function. Doppler and Color Flow revealed no pulmonic valvular regurgitation. There is no pulmonic valvular stenosis. GREAT VESSELS The aortic root is normal in size. The ascending aorta is normal in size. The pulmonary artery is nor mal. The IVC was obscured and was not visualized. PERICARDIAL EFFUSION There is no evidence of significant pericardial effusion. Critical Notification Critical Value: No <Conclusion> Left ventricle systolic function is mildly impaired. The Ejection Fraction is 40-45%. Abnormal septal wall motion probably from paced rhythm. There is a pacemaker lead in the right ventricle. Mild mitral regurgitation. Moderate tricuspid regurgitation. The pulmonary artery systolic pressure is estimated at 39 mmHg. There is mild pulmonary hypertension. There is no evidence of significant pericardial effusion.
[2016-05-01 15:18] LABS: CALCIUM 8.5 mg/dL (8.5-10.1); CREATININE 1.8 mg/dL (0.7-1.3); GFR 36.6; POTASSIUM 5.2 mmol/L (3.5-5.1)
[2016-05-01] MEDS ORDERED: ANTI-COAG MONITOR BY PHARMACY. MC PRN (15:30)
--- NOTE | 2016-05-01 16:29 | PDOC ---
SUBJECTIVE Subjective Pt. with LUTS and retention OBJECTIVE Objective fossa navicularis narrowing Vital Signs Vital Signs Date Time Temp Pulse Resp B/P Pulse Ox O2 Delivery O2 Flow Rate FiO2 05/01/16 15:00 97.5 80 20 138/73 97 Room Air 97.5 05/01/16 10:50 97.9 87 20 128/65 96 Room Air 97.9 05/01/16 07:00 97.9 80 20 131/74 97 Room Air 97.9 05/01/16 05:22 Room Air 05/01/16 05:16 97.5 80 18 141/87 96 Room Air 97.5 05/01/16 04:34 80 20 157/75 93 Room Air 05/01/16 03:34 80 20 136/73 95 Room Air 05/01/16 02:34 80 22 142/73 95 Room Air 05/01/16 01:04 92 20 121/62 96 Room Air 05/01/16 00:34 80 22 142/75 96 Room Air 04/30/16 23:34 80 22 144/80 96 Room Air 04/30/16 23:04 80 20 135/74 96 Room Air 04/30/16 22:34 91 18 132/72 95 Room Air 04/30/16 22:10 97.5 80 22 144/79 96 Room Air 97.5 I & O Intake and Output 05/01/16 06:59 Intake Total 0 ml Balance 0 ml Intake Oral 0 ml PHYSICAL EXAM Physical Exam 14 Fr. 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 in 1-2 weeks for voiding trial COMMENT Lab Laboratory Tests Test 04/30/16 22:55 05/01/16 00:20 05/01/16 02:28 05/01/16 07:13 Glucose (Fingerstick) 111mg/dL (70-99) 58mg/dL (70-99) 28mg/dL (70-99) White Blood Count 7.7x10^3/uL (4.0-11.0) Red Blood Count 3.79x10^6/uL (4.30-5.70) Hemoglobin 11.0g/dL (13.0-17.5) Hematocrit 34.4% (39.0-53.0) Mean Corpuscular Volume 91fL (79-100) Mean Corpuscular Hemoglobin 29pg (25-35) Mean Corpuscular Hemoglobin Concent 32g/dL (31-37) Red Cell Distribution Width 17.1% (11.5-14.5) Platelet Count 151x10^3/uL (140-400) Neutrophils (%) (Auto) 75% (31-73) Lymphocytes (%) (Auto) 12% (24-48) Monocytes (%) (Auto) 11% (0-9) Eosinophils (%) (Auto) 1% (0-3) Basophils (%) (Auto) 1% (0-3) Neutrophils # (Auto) 5.7x10^3uL (1.8-7.7) Lymphocytes # (Auto) 0.9x10^3/uL (1.0-4.8) Monocytes # (Auto) 0.9x10^3/uL (0.0-1.1) Eosinophils # (Auto) 0.1x10^3/uL (0.0-0.7) Basophils # (Auto) 0.1x10^3/uL (0.0-0.2) Sodium Level 151mmol/L (136-145) Potassium Level 5.6mmol/L (3.5-5.1) Chloride Level 116mmol/L (98-107) Carbon Dioxide Level 26mmol/L (21-32) Anion Gap 9 (6-14) Blood Urea Nitrogen 34mg/dL (8-26) Creatinine 1.9mg/dL (0.7-1.3) Estimated GFR (Cockcroft-Gault) 34.4 Glucose Level 93mg/dL (70-99) Calcium Level 8.5mg/dL (8.5-10.1) Total Bilirubin 1.0mg/dL (0.2-1.0) Direct Bilirubin 0.3mg/dL (0.0-0.2) Aspartate Amino Transf (AST/SGOT) 27U/L (15-37) Alanine Aminotransferase (ALT/SGPT) 20U/L (16-63) Alkaline Phosphatase 56U/L (46-116) Troponin I Quantitative 0.025ng/mL (0.000-0.055) ER-Qoy-H-Type Natriuretic Peptide 8241pg/mL (0-449) Total Protein 6.8g/dL (6.4-8.2) Albumin 3.6g/dL (3.4-5.0) Thyroid Stimulating Hormone (TSH) 0.916uIU/mL (0.358-3.74) Test 05/01/16 07:25 05/01/16 08:32 05/01/16 09:00 05/01/16 11:52 Glucose (Fingerstick) 40mg/dL (70-99) 131mg/dL (70-99) 192mg/dL (70-99) Magnesium Level 2.3mg/dL (1.8-2.4) Troponin I Quantitative 0.020ng/mL (0.000-0.055) Test 05/01/16 15:00 Sodium Level 143mmol/L (136-145) Potassium Level 5.2mmol/L (3.5-5.1) Chloride Level 108mmol/L (98-107) Carbon Dioxide Level 26mmol/L (21-32) Anion Gap 9 (6-14) Blood Urea Nitrogen 35mg/dL (8-26) Creatinine 1.8mg/dL (0.7-1.3) Estimated GFR (Cockcroft-Gault) 36.6 Glucose Level 288mg/dL (70-99) Calcium Level 8.5mg/dL (8.5-10.1) Troponin I Quantitative 0.017ng/mL (0.000-0.055) BRANDY HERNANDEZ MD May 01, 2016 16:29
[2016-05-01] MEDS: CARVEDILOL 12.5 MG TABLET PO SCH (18:10)
[2016-05-01 19:10] VITALS: BP 108/54
[2016-05-01] MEDS ORDERED: AMOXICILLIN/K CLAV 875/125MG TABLET. PO SCH (21:00)
[2016-05-01] MEDS: ZOLPIDEM 5 MG TABLET. PO PRN (21:22)
[2016-05-01] MEDS: APIXABAN 5 MG TABLET. PO SCH (21:22)
[2016-05-01 23:45] VITALS: BP 110/56
[2016-05-02] MEDS: IV NORMAL SALINE 1000ML BAG 1,000 ML IV SCH ×2 (01:05→14:52)
[2016-05-02 06:02] LABS: ALBUMIN 3.1 g/dL (3.4-5.0); ALBUMIN/GLOBULIN RATIO 1.1 (1.0-1.7); BASO # 0.1 x10^3/uL (0.0-0.2); BASO % 1 % (0-3); CALCIUM 7.9 mg/dL (8.5-10.1); CREATININE 1.7 mg/dL (0.7-1.3); EOS % 2 % (0-3); GFR 39.1; HEMATOCRIT 31.5 % (39.0-53.0); HEMOGLOBIN 10.3 g/dL (13.0-17.5); LYMPH # 0.8 x10^3/uL (1.0-4.8); LYMPH % 11 % (24-48); MEAN CORPUSCULAR HEMOGLOBIN 29 pg (25-35); MEAN CORPUSCULAR HGB CONC 33 g/dL (31-37); MEAN CORPUSCULAR VOLUME 90 fL (79-100); MONO % 10 % (0-9); NEUT % 77 % (31-73); PLATELET COUNT 134 x10^3/uL (140-400); POTASSIUM 4.8 mmol/L (3.5-5.1); RED BLOOD COUNT 3.51 x10^6/uL (4.30-5.70); RED CELL DISTRIBUTION WIDTH 17.4 % (11.5-14.5); TOTAL BILIRUBIN 0.9 mg/dL (0.2-1.0); TOTAL PROTEIN 5.8 g/dL (6.4-8.2); WHITE BLOOD COUNT 7.1 x10^3/uL (4.0-11.0)
[2016-05-02 07:00] VITALS: BP 119/55
[2016-05-02] MEDS: INSULIN ASPART 300 UNITS/3 ML INSULN.PEN SQ SCH ×3 (08:00→16:53)
--- NOTE | 2016-05-02 08:48 | CONS ---
DATE OF CONSULTATION: 05/01/2016 PATIENT'S ROOM: 668. HISTORY OF PRESENT ILLNESS: The patient is a very pleasant 80-year-old white male who was admitted with chief complaint of falls, but was found to have elevated creatinine of 1.9 and elevated potassium and also difficult Hidalgo placement. Therefore, Urology was consulted. The patient had actually been seen 2-1/2 years ago for voiding problems and found to have severe phimosis and therefore underwent a dorsal slit circumcision and Hidalgo placement. He states that for about the last year, he has been having some problems with urinary frequency. He is on Flomax once a day. Testes are descended bilaterally. 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 The urethral meatus is visible. On rectal examination, he has good sphincter tone. Prostate smooth, nontender, without nodules, overall size 25 grams. At the bedside, penis was prepped and draped in a sterile fashion and the ureter loaded with lubricant. The patient noted to have fossa navicularis narrowing, but a 14-Arabic Hidalgo catheter was able to be passed per urethra into the bladder and clear yellow urine obtained; therefore, balloon was inflated and catheter secured to the patient's left thigh and connected to gravity drainage. The patient tolerated the procedure very well, 275 mL of urine drained immediately. Would recommend keeping the Hidalgo catheter in place to allow the bladder to regain its tone and help improve his kidney function numbers. We will get a renal ultrasound on the patient and then keep him on his Flomax and then plan on seeing him back in followup in the urology office with nurse practitioner, Mine Villanueva for a voiding trial in 1-2 weeks. I certainly appreciate being allowed to participate in this patient's care. BRANDY HERNANDEZ MD DR: [email or web address]/govind JOB#: [id number] / [id number]
[2016-05-02] MEDS: APIXABAN 5 MG TABLET. PO SCH ×2 (08:58→20:17)
[2016-05-02] MEDS: GLIMEPIRIDE 2 MG TABLET PO SCH (08:58)
[2016-05-02] MEDS: TAMSULOSIN 0.4 MG CAP.ER.24H. PO SCH (08:58)
[2016-05-02] MEDS: METFORMIN 500 MG TABLET. PO SCH (08:58)
[2016-05-02] MEDS ORDERED: LISINOPRIL 20 MG TABLET PO SCH (09:00)
[2016-05-02] MEDS: CARVEDILOL 12.5 MG TABLET PO SCH ×2 (09:00→16:59)
--- NOTE | 2016-05-02 09:01 | PDOC ---
SUBJECTIVE Subjective Pt. feeling ok OBJECTIVE Objective alexis in place Vital Signs Vital Signs Date Time Temp Pulse Resp B/P Pulse Ox O2 Delivery O2 Flow Rate FiO2 05/02/16 03:42 97.8 Room Air 97.8 05/01/16 23:45 100.8 80 20 110/56 96 Room Air 100.8 05/01/16 20:00 Room Air 05/01/16 19:10 99.1 80 20 108/54 97 Room Air 99.1 05/01/16 18:10 80 138/73 05/01/16 15:00 97.5 80 20 138/73 97 Room Air 97.5 05/01/16 10:50 97.9 87 20 128/65 96 Room Air 97.9 I & O Intake and Output 05/02/16 07:00 Intake Total 1740 ml Balance 1740 ml Intake Oral 1740 ml # Voids 5 PHYSICAL EXAM Physical Exam alexis to gravity urine clear yellow good uo Cr. 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 keep alexis stay on flomax Problems: COMMENT Lab Laboratory Tests Test 05/01/16 09:00 05/01/16 11:52 05/01/16 15:00 05/01/16 16:41 Magnesium Level 2.3mg/dL (1.8-2.4) Troponin I Quantitative 0.020ng/mL (0.000-0.055) 0.017ng/mL (0.000-0.055) Glucose (Fingerstick) 192mg/dL (70-99) 247mg/dL (70-99) Sodium Level 143mmol/L (136-145) Potassium Level 5.2mmol/L (3.5-5.1) Chloride Level 108mmol/L (98-107) Carbon Dioxide Level 26mmol/L (21-32) Anion Gap 9 (6-14) Blood Urea Nitrogen 35mg/dL (8-26) Creatinine 1.8mg/dL (0.7-1.3) Estimated GFR (Cockcroft-Gault) 36.6 Glucose Level 288mg/dL (70-99) Calcium Level 8.5mg/dL (8.5-10.1) Test 05/01/16 20:57 05/02/16 04:32 05/02/16 07:52 Glucose (Fingerstick) 252mg/dL (70-99) 100mg/dL (70-99) White Blood Count 7.1x10^3/uL (4.0-11.0) Red Blood Count 3.51x10^6/uL (4.30-5.70) Hemoglobin 10.3g/dL (13.0-17.5) Hematocrit 31.5% (39.0-53.0) Mean Corpuscular Volume 90fL (79-100) Mean Corpuscular Hemoglobin 29pg (25-35) Mean Corpuscular Hemoglobin Concent 33g/dL (31-37) Red Cell Distribution Width 17.4% (11.5-14.5) Platelet Count 134x10^3/uL (140-400) Neutrophils (%) (Auto) 77% (31-73) Lymphocytes (%) (Auto) 11% (24-48) Monocytes (%) (Auto) 10% (0-9) Eosinophils (%) (Auto) 2% (0-3) Basophils (%) (Auto) 1% (0-3) Neutrophils # (Auto) 5.4x10^3uL (1.8-7.7) Lymphocytes # (Auto) 0.8x10^3/uL (1.0-4.8) Monocytes # (Auto) 0.7x10^3/uL (0.0-1.1) Eosinophils # (Auto) 0.1x10^3/uL (0.0-0.7) Basophils # (Auto) 0.1x10^3/uL (0.0-0.2) Sodium Level 144mmol/L (136-145) Potassium Level 4.8mmol/L (3.5-5.1) Chloride Level 110mmol/L (98-107) Carbon Dioxide Level 26mmol/L (21-32) Anion Gap 8 (6-14) Blood Urea Nitrogen 33mg/dL (8-26) Creatinine 1.7mg/dL (0.7-1.3) Estimated GFR (Cockcroft-Gault) 39.1 BUN/Creatinine Ratio 19 (6-20) Glucose Level 116mg/dL (70-99) Calcium Level 7.9mg/dL (8.5-10.1) Total Bilirubin 0.9mg/dL (0.2-1.0) Aspartate Amino Transf (AST/SGOT) 20U/L (15-37) Alanine Aminotransferase (ALT/SGPT) 17U/L (16-63) Alkaline Phosphatase 49U/L (46-116) Total Protein 5.8g/dL (6.4-8.2) Albumin 3.1g/dL (3.4-5.0) Albumin/Globulin Ratio 1.1 (1.0-1.7) BRANDY HERNANDEZ MD May 02, 2016 09:01
[2016-05-02 11:00] VITALS: BP 127/69
--- NOTE | 2016-05-02 12:27 | PDOC ---
Renal-Progress Notes Subjective Notes Notes NONE History of Present Illness Hx of present illness STABLE Vitals Vitals Vital Signs Date Time Temp Pulse Resp B/P Pulse Ox O2 Delivery O2 Flow Rate FiO2 05/02/16 11:00 97.9 80 16 127/69 98 Room Air 97.9 Weight Weight [ ] I.O. Intake and Output Intake and Output 05/02/16 07:00 Intake Total 1740 ml Balance 1740 ml Intake Oral 1740 ml # Voids 5 Labs Labs Laboratory Tests Test 05/01/16 15:00 05/01/16 16:41 05/01/16 20:57 05/02/16 04:32 Sodium Level 143mmol/L (136-145) 144mmol/L (136-145) Potassium Level 5.2mmol/L (3.5-5.1) 4.8mmol/L (3.5-5.1) Chloride Level 108mmol/L (98-107) 110mmol/L (98-107) Carbon Dioxide Level 26mmol/L (21-32) 26mmol/L (21-32) Anion Gap 9 (6-14) 8 (6-14) Blood Urea Nitrogen 35mg/dL (8-26) 33mg/dL (8-26) Creatinine 1.8mg/dL (0.7-1.3) 1.7mg/dL (0.7-1.3) Estimated GFR (Cockcroft-Gault) 36.6 39.1 Glucose Level 288mg/dL (70-99) 116mg/dL (70-99) Calcium Level 8.5mg/dL (8.5-10.1) 7.9mg/dL (8.5-10.1) Troponin I Quantitative 0.017ng/mL (0.000-0.055) Glucose (Fingerstick) 247mg/dL (70-99) 252mg/dL (70-99) White Blood Count 7.1x10^3/uL (4.0-11.0) Red Blood Count 3.51x10^6/uL (4.30-5.70) Hemoglobin 10.3g/dL (13.0-17.5) Hematocrit 31.5% (39.0-53.0) Mean Corpuscular Volume 90fL (79-100) Mean Corpuscular Hemoglobin 29pg (25-35) Mean Corpuscular Hemoglobin Concent 33g/dL (31-37) Red Cell Distribution Width 17.4% (11.5-14.5) Platelet Count 134x10^3/uL (140-400) Neutrophils (%) (Auto) 77% (31-73) Lymphocytes (%) (Auto) 11% (24-48) Monocytes (%) (Auto) 10% (0-9) Eosinophils (%) (Auto) 2% (0-3) Basophils (%) (Auto) 1% (0-3) Neutrophils # (Auto) 5.4x10^3uL (1.8-7.7) Lymphocytes # (Auto) 0.8x10^3/uL (1.0-4.8) Monocytes # (Auto) 0.7x10^3/uL (0.0-1.1) Eosinophils # (Auto) 0.1x10^3/uL (0.0-0.7) Basophils # (Auto) 0.1x10^3/uL (0.0-0.2) BUN/Creatinine Ratio 19 (6-20) Total Bilirubin 0.9mg/dL (0.2-1.0) Aspartate Amino Transf (AST/SGOT) 20U/L (15-37) Alanine Aminotransferase (ALT/SGPT) 17U/L (16-63) Alkaline Phosphatase 49U/L (46-116) Total Protein 5.8g/dL (6.4-8.2) Albumin 3.1g/dL (3.4-5.0) Albumin/Globulin Ratio 1.1 (1.0-1.7) Test 05/02/16 07:52 05/02/16 11:44 Glucose (Fingerstick) 100mg/dL (70-99) 173mg/dL (70-99) Review of Systems Constitutional: yes: no symptom reported Physical Exam General Appearance: no apparent distress Skin: warm Respiratory: decreased breath sounds Heart: S1S2, RRR Abdomen: soft, bowel sounds present Extremities: pulses present Neurology: alert Assessment Assessment IMP TONEY HYPERKALEMIA-BETTER HYPERNATREMIA-BETTER [id number] DOWN TO 1.7 CKD STAGE 3 WITH CR OF 1.3 PLAN CONT IVF'S MORRIS PLACED BY UROLOGY WILL FOLLOW DOMENIC SANTAMARIA MD May 02, 2016 12:27
--- NOTE | 2016-05-02 13:07 | PDOC ---
[employer] 05/02/16 1307: CARDIO Progress Notes Date and Time Date of Service 05/02/2016 Time of Evaluation 1300 Subjective Subjective: No Chest Pain, No Palpitations, No Dizziness, Other (feels better today) Vitals Vitals Vital Signs Date Time Temp Pulse Resp B/P Pulse Ox O2 Delivery O2 Flow Rate FiO2 05/02/16 11:00 97.9 80 16 127/69 98 Room Air 97.9 Weight Weight [ ] Input and Output Intake and Output Intake and Output 05/02/16 07:00 Intake Total 1740 ml Balance 1740 ml Intake Oral 1740 ml # Voids 5 Laboratory Labs Laboratory Tests Test 05/01/16 15:00 05/01/16 16:41 05/01/16 20:57 05/02/16 04:32 Sodium Level 143mmol/L (136-145) 144mmol/L (136-145) Potassium Level 5.2mmol/L (3.5-5.1) 4.8mmol/L (3.5-5.1) Chloride Level 108mmol/L (98-107) 110mmol/L (98-107) Carbon Dioxide Level 26mmol/L (21-32) 26mmol/L (21-32) Anion Gap 9 (6-14) 8 (6-14) Blood Urea Nitrogen 35mg/dL (8-26) 33mg/dL (8-26) Creatinine 1.8mg/dL (0.7-1.3) 1.7mg/dL (0.7-1.3) Estimated GFR (Cockcroft-Gault) 36.6 39.1 Glucose Level 288mg/dL (70-99) 116mg/dL (70-99) Calcium Level 8.5mg/dL (8.5-10.1) 7.9mg/dL (8.5-10.1) Troponin I Quantitative 0.017ng/mL (0.000-0.055) Glucose (Fingerstick) 247mg/dL (70-99) 252mg/dL (70-99) White Blood Count 7.1x10^3/uL (4.0-11.0) Red Blood Count 3.51x10^6/uL (4.30-5.70) Hemoglobin 10.3g/dL (13.0-17.5) Hematocrit 31.5% (39.0-53.0) Mean Corpuscular Volume 90fL (79-100) Mean Corpuscular Hemoglobin 29pg (25-35) Mean Corpuscular Hemoglobin Concent 33g/dL (31-37) Red Cell Distribution Width 17.4% (11.5-14.5) Platelet Count 134x10^3/uL (140-400) Neutrophils (%) (Auto) 77% (31-73) Lymphocytes (%) (Auto) 11% (24-48) Monocytes (%) (Auto) 10% (0-9) Eosinophils (%) (Auto) 2% (0-3) Basophils (%) (Auto) 1% (0-3) Neutrophils # (Auto) 5.4x10^3uL (1.8-7.7) Lymphocytes # (Auto) 0.8x10^3/uL (1.0-4.8) Monocytes # (Auto) 0.7x10^3/uL (0.0-1.1) Eosinophils # (Auto) 0.1x10^3/uL (0.0-0.7) Basophils # (Auto) 0.1x10^3/uL (0.0-0.2) BUN/Creatinine Ratio 19 (6-20) Total Bilirubin 0.9mg/dL (0.2-1.0) Aspartate Amino Transf (AST/SGOT) 20U/L (15-37) Alanine Aminotransferase (ALT/SGPT) 17U/L (16-63) Alkaline Phosphatase 49U/L (46-116) Total Protein 5.8g/dL (6.4-8.2) Albumin 3.1g/dL (3.4-5.0) Albumin/Globulin Ratio 1.1 (1.0-1.7) Test 05/02/16 07:52 05/02/16 11:44 Glucose (Fingerstick) 100mg/dL (70-99) 173mg/dL (70-99) Review of Systems Constitutional: yes: no symptom reported Physical Exam HEENT: Neck Supple W Full Motion Chest: Symmetric LUNGS: Other (posterior crackles about 2/3 up posteriorly) Heart: S1S2, RRR Abdomen: Soft N/T (obese abdomen) Extremities: No Edema Neurology: alert, follow commands, other (about to sit self on the side of the bed today) Other Exams palm sized ecchymotic area on left mid thoracic region - posteriorly - appears older palm sized ecchymotic area on right upper lumbar region - appear to be new Assessment Assessment 1. falls ? mechanical vs syncope 2. chronic CHF, systolic depressed LVEF @ 40-45% IVF per nephrology posterior crackles awaiting records from [facility] 3. DM, II hypoglycemic on EMS presentation suspect this is likely etiology of issues per primary service 4. PPM brand unknown records requested interrogate if brand can be determined 5. PRANAY/CKD Cr improved 6. hypernatremia normalized today Suspect pt would benefit from placement or SNF for a while MANJULA MARTÍNEZ MD 05/02/16 6194: CARDIO Progress Notes Plan Plan Patient seen and examined. Agree with nurse practitioner. No acute events overnight. Patient ambulated today with physical therapy and did quite well. On exam he still has bilateral rales. Noted nephrology recommendations for IV fluids. Continue supportive care from a cardiac perspective. Awaiting records from [facility] and Dr. Braun. HONG FUNG APRN May 02, 2016 13:07 MANJULA MARTÍNEZ MD May 02, 2016 16:44
--- NOTE | 2016-05-02 14:04 | PDOC ---
PROGRESS NOTES Chief Complaint Chief Complaint falls, syncope metabolic encephalopathy, acute, resolved hypoglycemia, resolved acute on chronic CKD, vasomotor hyperkalemia, hypernatremia, obeisty, BMI 34.6 History of Present Illness History of Present Illness NO issues BS good No more hypoglycemia PT recs SNU Dw SW Pt agreebale to SNU Needs 2 MN PLAN: 2MN Stay SW SNU on dc Add SSI Vitals Vitals Vital Signs Date Time Temp Pulse Resp B/P Pulse Ox O2 Delivery O2 Flow Rate FiO2 05/02/16 11:00 97.9 80 16 127/69 98 Room Air 97.9 Physical Exam General: Alert, Cooperative, No acute distress Heart: Regular rate, Normal S1, Normal S2 Lungs: Clear Abdomen: Normal bowel sounds, Soft, No tenderness Extremities: No clubbing Skin: No significant lesion Labs LABS Laboratory Tests Test 05/01/16 15:00 05/01/16 16:41 05/01/16 20:57 05/02/16 04:32 Sodium Level 143mmol/L (136-145) 144mmol/L (136-145) Potassium Level 5.2mmol/L (3.5-5.1) 4.8mmol/L (3.5-5.1) Chloride Level 108mmol/L (98-107) 110mmol/L (98-107) Carbon Dioxide Level 26mmol/L (21-32) 26mmol/L (21-32) Anion Gap 9 (6-14) 8 (6-14) Blood Urea Nitrogen 35mg/dL (8-26) 33mg/dL (8-26) Creatinine 1.8mg/dL (0.7-1.3) 1.7mg/dL (0.7-1.3) Estimated GFR (Cockcroft-Gault) 36.6 39.1 Glucose Level 288mg/dL (70-99) 116mg/dL (70-99) Calcium Level 8.5mg/dL (8.5-10.1) 7.9mg/dL (8.5-10.1) Troponin I Quantitative 0.017ng/mL (0.000-0.055) Glucose (Fingerstick) 247mg/dL (70-99) 252mg/dL (70-99) White Blood Count 7.1x10^3/uL (4.0-11.0) Red Blood Count 3.51x10^6/uL (4.30-5.70) Hemoglobin 10.3g/dL (13.0-17.5) Hematocrit 31.5% (39.0-53.0) Mean Corpuscular Volume 90fL (79-100) Mean Corpuscular Hemoglobin 29pg (25-35) Mean Corpuscular Hemoglobin Concent 33g/dL (31-37) Red Cell Distribution Width 17.4% (11.5-14.5) Platelet Count 134x10^3/uL (140-400) Neutrophils (%) (Auto) 77% (31-73) Lymphocytes (%) (Auto) 11% (24-48) Monocytes (%) (Auto) 10% (0-9) Eosinophils (%) (Auto) 2% (0-3) Basophils (%) (Auto) 1% (0-3) Neutrophils # (Auto) 5.4x10^3uL (1.8-7.7) Lymphocytes # (Auto) 0.8x10^3/uL (1.0-4.8) Monocytes # (Auto) 0.7x10^3/uL (0.0-1.1) Eosinophils # (Auto) 0.1x10^3/uL (0.0-0.7) Basophils # (Auto) 0.1x10^3/uL (0.0-0.2) BUN/Creatinine Ratio 19 (6-20) Total Bilirubin 0.9mg/dL (0.2-1.0) Aspartate Amino Transf (AST/SGOT) 20U/L (15-37) Alanine Aminotransferase (ALT/SGPT) 17U/L (16-63) Alkaline Phosphatase 49U/L (46-116) Total Protein 5.8g/dL (6.4-8.2) Albumin 3.1g/dL (3.4-5.0) Albumin/Globulin Ratio 1.1 (1.0-1.7) Test 05/02/16 07:52 05/02/16 11:44 Glucose (Fingerstick) 100mg/dL (70-99) 173mg/dL (70-99) Review of Systems Review of Systems no cp, soa, dizziness, lightheadedness, abd pain Assessment and Plan Assessmemt and Plan Problems Medical Problems: (1) CHF (congestive heart failure) Status: Acute (2) CHF (congestive heart failure) Status: Acute (3) Hyperkalemia Status: Acute (4) Hypernatremia Status: Acute (5) Recurrent falls Status: Acute Problems: Comment Review of Relevant I have reviewed the following items marcel (where applicable) has been applied. Labs Laboratory Tests Test 04/30/16 22:55 05/01/16 00:20 05/01/16 02:28 05/01/16 07:13 Glucose (Fingerstick) 111mg/dL (70-99) 58mg/dL (70-99) 28mg/dL (70-99) White Blood Count 7.7x10^3/uL (4.0-11.0) Red Blood Count 3.79x10^6/uL (4.30-5.70) Hemoglobin 11.0g/dL (13.0-17.5) Hematocrit 34.4% (39.0-53.0) Mean Corpuscular Volume 91fL (79-100) Mean Corpuscular Hemoglobin 29pg (25-35) Mean Corpuscular Hemoglobin Concent 32g/dL (31-37) Red Cell Distribution Width 17.1% (11.5-14.5) Platelet Count 151x10^3/uL (140-400) Neutrophils (%) (Auto) 75% (31-73) Lymphocytes (%) (Auto) 12% (24-48) Monocytes (%) (Auto) 11% (0-9) Eosinophils (%) (Auto) 1% (0-3) Basophils (%) (Auto) 1% (0-3) Neutrophils # (Auto) 5.7x10^3uL (1.8-7.7) Lymphocytes # (Auto) 0.9x10^3/uL (1.0-4.8) Monocytes # (Auto) 0.9x10^3/uL (0.0-1.1) Eosinophils # (Auto) 0.1x10^3/uL (0.0-0.7) Basophils # (Auto) 0.1x10^3/uL (0.0-0.2) Sodium Level 151mmol/L (136-145) Potassium Level 5.6mmol/L (3.5-5.1) Chloride Level 116mmol/L (98-107) Carbon Dioxide Level 26mmol/L (21-32) Anion Gap 9 (6-14) Blood Urea Nitrogen 34mg/dL (8-26) Creatinine 1.9mg/dL (0.7-1.3) Estimated GFR (Cockcroft-Gault) 34.4 Glucose Level 93mg/dL (70-99) Calcium Level 8.5mg/dL (8.5-10.1) Total Bilirubin 1.0mg/dL (0.2-1.0) Direct Bilirubin 0.3mg/dL (0.0-0.2) Aspartate Amino Transf (AST/SGOT) 27U/L (15-37) Alanine Aminotransferase (ALT/SGPT) 20U/L (16-63) Alkaline Phosphatase 56U/L (46-116) Troponin I Quantitative 0.025ng/mL (0.000-0.055) TW-Uuc-E-Type Natriuretic Peptide 8241pg/mL (0-449) Total Protein 6.8g/dL (6.4-8.2) Albumin 3.6g/dL (3.4-5.0) Thyroid Stimulating Hormone (TSH) 0.916uIU/mL (0.358-3.74) Test 05/01/16 07:25 05/01/16 08:32 05/01/16 09:00 05/01/16 11:52 Glucose (Fingerstick) 40mg/dL (70-99) 131mg/dL (70-99) 192mg/dL (70-99) Magnesium Level 2.3mg/dL (1.8-2.4) Troponin I Quantitative 0.020ng/mL (0.000-0.055) Test 05/01/16 15:00 05/01/16 16:41 05/01/16 20:57 05/02/16 04:32 Sodium Level 143mmol/L (136-145) 144mmol/L (136-145) Potassium Level 5.2mmol/L (3.5-5.1) 4.8mmol/L (3.5-5.1) Chloride Level 108mmol/L (98-107) 110mmol/L (98-107) Carbon Dioxide Level 26mmol/L (21-32) 26mmol/L (21-32) Anion Gap 9 (6-14) 8 (6-14) Blood Urea Nitrogen 35mg/dL (8-26) 33mg/dL (8-26) Creatinine 1.8mg/dL (0.7-1.3) 1.7mg/dL (0.7-1.3) Estimated GFR (Cockcroft-Gault) 36.6 39.1 Glucose Level 288mg/dL (70-99) 116mg/dL (70-99) Calcium Level 8.5mg/dL (8.5-10.1) 7.9mg/dL (8.5-10.1) Troponin I Quantitative 0.017ng/mL (0.000-0.055) Glucose (Fingerstick) 247mg/dL (70-99) 252mg/dL (70-99) White Blood Count 7.1x10^3/uL (4.0-11.0) Red Blood Count 3.51x10^6/uL (4.30-5.70) Hemoglobin 10.3g/dL (13.0-17.5) Hematocrit 31.5% (39.0-53.0) Mean Corpuscular Volume 90fL (79-100) Mean Corpuscular Hemoglobin 29pg (25-35) Mean Corpuscular Hemoglobin Concent 33g/dL (31-37) Red Cell Distribution Width 17.4% (11.5-14.5) Platelet Count 134x10^3/uL (140-400) Neutrophils (%) (Auto) 77% (31-73) Lymphocytes (%) (Auto) 11% (24-48) Monocytes (%) (Auto) 10% (0-9) Eosinophils (%) (Auto) 2% (0-3) Basophils (%) (Auto) 1% (0-3) Neutrophils # (Auto) 5.4x10^3uL (1.8-7.7) Lymphocytes # (Auto) 0.8x10^3/uL (1.0-4.8) Monocytes # (Auto) 0.7x10^3/uL (0.0-1.1) Eosinophils # (Auto) 0.1x10^3/uL (0.0-0.7) Basophils # (Auto) 0.1x10^3/uL (0.0-0.2) BUN/Creatinine Ratio 19 (6-20) Total Bilirubin 0.9mg/dL (0.2-1.0) Aspartate Amino Transf (AST/SGOT) 20U/L (15-37) Alanine Aminotransferase (ALT/SGPT) 17U/L (16-63) Alkaline Phosphatase 49U/L (46-116) Total Protein 5.8g/dL (6.4-8.2) Albumin 3.1g/dL (3.4-5.0) Albumin/Globulin Ratio 1.1 (1.0-1.7) Test 05/02/16 07:52 05/02/16 11:44 Glucose (Fingerstick) 100mg/dL (70-99) 173mg/dL (70-99) Laboratory Tests Test 05/01/16 15:00 05/01/16 16:41 05/01/16 20:57 05/02/16 04:32 Sodium Level 143mmol/L (136-145) 144mmol/L (136-145) Potassium Level 5.2mmol/L (3.5-5.1) 4.8mmol/L (3.5-5.1) Chloride Level 108mmol/L (98-107) 110mmol/L (98-107) Carbon Dioxide Level 26mmol/L (21-32) 26mmol/L (21-32) Anion Gap 9 (6-14) 8 (6-14) Blood Urea Nitrogen 35mg/dL (8-26) 33mg/dL (8-26) Creatinine 1.8mg/dL (0.7-1.3) 1.7mg/dL (0.7-1.3) Estimated GFR (Cockcroft-Gault) 36.6 39.1 Glucose Level 288mg/dL (70-99) 116mg/dL (70-99) Calcium Level 8.5mg/dL (8.5-10.1) 7.9mg/dL (8.5-10.1) Troponin I Quantitative 0.017ng/mL (0.000-0.055) Glucose (Fingerstick) 247mg/dL (70-99) 252mg/dL (70-99) White Blood Count 7.1x10^3/uL (4.0-11.0) Red Blood Count 3.51x10^6/uL (4.30-5.70) Hemoglobin 10.3g/dL (13.0-17.5) Hematocrit 31.5% (39.0-53.0) Mean Corpuscular Volume 90fL (79-100) Mean Corpuscular Hemoglobin 29pg (25-35) Mean Corpuscular Hemoglobin Concent 33g/dL (31-37) Red Cell Distribution Width 17.4% (11.5-14.5) Platelet Count 134x10^3/uL (140-400) Neutrophils (%) (Auto) 77% (31-73) Lymphocytes (%) (Auto) 11% (24-48) Monocytes (%) (Auto) 10% (0-9) Eosinophils (%) (Auto) 2% (0-3) Basophils (%) (Auto) 1% (0-3) Neutrophils # (Auto) 5.4x10^3uL (1.8-7.7) Lymphocytes # (Auto) 0.8x10^3/uL (1.0-4.8) Monocytes # (Auto) 0.7x10^3/uL (0.0-1.1) Eosinophils # (Auto) 0.1x10^3/uL (0.0-0.7) Basophils # (Auto) 0.1x10^3/uL (0.0-0.2) BUN/Creatinine Ratio 19 (6-20) Total Bilirubin 0.9mg/dL (0.2-1.0) Aspartate Amino Transf (AST/SGOT) 20U/L (15-37) Alanine Aminotransferase (ALT/SGPT) 17U/L (16-63) Alkaline Phosphatase 49U/L (46-116) Total Protein 5.8g/dL (6.4-8.2) Albumin 3.1g/dL (3.4-5.0) Albumin/Globulin Ratio 1.1 (1.0-1.7) Test 05/02/16 07:52 05/02/16 11:44 Glucose (Fingerstick) 100mg/dL (70-99) 173mg/dL (70-99) Medications Current Medications Calcium Gluconate 1,000 mg 1X ONCE IVP Last administered on 2/15/17at 02:30; Start 05/01/16 at 02:30; Stop 05/01/16 at 02:31; Status DC Insulin Human Regular (Novolin R Vial) 10 unit 1X ONCE IV Last administered on 05/01/16 02:37; Start 05/01/16 at 02:30; Stop 05/01/16 at 02:31; Status DC Dextrose 25 gm 1X ONCE IV Last administered on 05/01/16 02:38; Start at 02:30; Stop 05/01/16 at 02:31; Status DC Furosemide (Lasix) 40 mg 1X ONCE IVP Last administered on 05/01/16 02:47; Start 05/01/16 at 02:30; Stop 05/01/16 at 02:31; Status DC Ondansetron HCl (Zofran) 4 mg PRN Q8HRS PRN IV NAUSEA/VOMITING; Start 05/01/16 at 02:45; Stop 05/02/16 at 02:44; Status DC Morphine Sulfate 2 mg PRN Q2HR PRN IV PAIN; Start 05/01/16 at 02:45; Stop 05/02 at 02:44; Status DC Acetaminophen (Tylenol) 650 mg PRN Q4HRS PRN PO FEVER Last administered on 05/01 21:26; Start 05/01/16 at 02:45; Stop 05/02/16 at 02:44; Status DC Insulin Aspart (Novolog) 0-7 UNITS TIDWMEALS SQ Last administered on 05/02/16 12:25; Start 05/01/16 at 08:00 Dextrose 12.5 gm PRN Q15MIN PRN IV SEE COMMENTS Last administered on 05/01/16 07:24; Start 05/01/16 at 02:45 Enoxaparin Sodium (Lovenox Per Pharmacy Prophylaxis Dosing) 1 each PRN DAILY PRN MC SEE COMMENTS; Start 05/01/16 at 11:15; Stop 05/01/16 at 14:55; Status DC Enoxaparin Sodium 40 mg 40 mg Q24H SQ ; Start 05/01/16 at 14:00; Stop 05/01/16 at 14:55; Status DC Sodium Chloride (Iv Sodium Chloride 0.9% 1000ml Bag) 1,000 ml @ 75 mls/hr [id number] IV Last administered on 05/01/16 13:13; Start 05/01/16 at 11:45 Lidocaine HCl (Glydo (Lidocaine) Jelly) 1 dhara 1X ONCE MM Last administered on 05/01/16 14:37; Start 05/01/16 at 13:15; Stop 05/01/16 at 13:50; Status DC Amoxicillin/ Clavulanate Potassium (Augmentin 875/ 125mg) 1 tab BID PO ; Start 05/01/16 at 21:00; Stop 05/01/16 at 21:00; Status DC Apixaban (Eliquis) 5 mg BID PO Last administered on 05/02/16 08:58; Start at 21:00 Carvedilol (Coreg) 12.5 mg BIDWMEALS PO Last administered on 05/02/16 09:00; Start 05/01/16 at 17:00 Lisinopril (Prinivil) 20 mg DAILY PO ; Start 05/02/16 at 09:00; Stop 05/02/16 at 09:00; Status DC Metformin HCl (Glucophage) 500 mg DAILY08 PO Last administered on 05/02/16 08: 58; Start 05/02/16 at 08:00 Zolpidem Tartrate (Ambien) 5 mg PRN QHS PRN PO INSOMNIA Last administered on 21:22; Start 05/01/16 at 15:00 Glimepiride (Amaryl) 4 mg DAILYWBKFT PO Last administered on 05/02/16 08:58; Start 05/02/16 at 08:00 Tamsulosin HCl (Flomax) 0.4 mg DAILY PO Last administered on 05/02/16 08:58; Start 05/02/16 at 09:00 Tamsulosin HCl (Flomax) 0.4 mg 1X ONCE PO Last administered on 05/01/16 18:08 ; Start 05/01/16 at 15:00; Stop 05/01/16 at 15:01; Status DC Info (Anti-Coagulation Monitoring By Pharmacy) 1 each PRN DAILY PRN MC SEE COMMENTS; Start 05/01/16 at 15:30 Active Scripts Active Reported Eliquis (Apixaban) 5 Mg Tablet 5 Mg PO BID Carvedilol 12.5 Mg Tablet 12.5 Mg PO BID Lisinopril 20 Mg Tablet 20 Mg PO DAILY Zolpidem Tartrate 5 Mg Tablet 5 Mg PO PRN QHS PRN Glimepiride 4 Mg Tablet 4 Mg PO DAILY Metformin Hcl 500 Mg Tablet 500 Mg PO DAILY08 Vitals/I & O Vital Sign - Last 24 Hours 05/01/16 05/01/16 05/01/16 05/01/16 15:00 18:10 19:10 20:00 Temp 97.5 99.1 97.5 99.1 Pulse 80 80 80 Resp 20 20 B/P 138/73 138/73 108/54 Pulse Ox 97 97 O2 Delivery Room Air Room Air Room Air 05/01/16 05/02/16 05/02/16 05/02/16 23:45 03:42 07:00 08:00 Temp 100.8 97.8 97.9 100.8 97.8 97.9 Pulse 80 76 Resp 20 18 B/P 110/56 119/55 Pulse Ox 96 95 O2 Delivery Room Air Room Air Room Air Room Air 05/02/16 05/02/16 09:00 11:00 Temp 97.9 97.9 Pulse 76 80 Resp 16 B/P 119/55 127/69 Pulse Ox 98 O2 Delivery Room Air Intake and Output 05/01/16 05/01/16 05/02/16 15:00 23:00 07:00 Intake Total 1000 ml 740 ml Balance 1000 ml 740 ml MARIA EUGENIA MATHIS MD May 02, 2016 14:04
[2016-05-02] MEDS ORDERED: DEXTROSE 50% 25 GM / 50ML DISP.SYRIN. IV PRN (14:15)
[2016-05-02 15:00] VITALS: BP 103/54
--- NOTE | 2016-05-02 16:14 | PDOC ---
SUBJECTIVE Subjective Pt. feeling ok OBJECTIVE Objective alexis in place Vital Signs Vital Signs Date Time Temp Pulse Resp B/P Pulse Ox O2 Delivery O2 Flow Rate FiO2 05/02/16 15:00 98.2 80 18 103/54 94 Room Air 98.2 05/02/16 11:00 97.9 80 16 127/69 98 Room Air 97.9 05/02/16 09:00 76 119/55 05/02/16 08:00 Room Air 05/02/16 07:00 97.9 76 18 119/55 95 Room Air 97.9 05/02/16 03:42 97.8 Room Air 97.8 05/01/16 23:45 100.8 80 20 110/56 96 Room Air 100.8 05/01/16 20:00 Room Air 05/01/16 19:10 99.1 80 20 108/54 97 Room Air 99.1 05/01/16 18:10 80 138/73 I & O Intake and Output 05/02/16 07:00 Intake Total 1740 ml Balance 1740 ml Intake Oral 1740 ml # Voids 5 PHYSICAL EXAM Physical Exam urine clear. Report from nursing that there was 550 cc urine today. unable to see kidneys on sonogram adequately ASSESSMENT/PLAN Assessment/Plan Ct abd and pelvis without contrast keep alexis in place Problems: COMMENT Lab Laboratory Tests Test 05/01/16 16:41 05/01/16 20:57 05/02/16 04:32 05/02/16 07:52 Glucose (Fingerstick) 247mg/dL (70-99) 252mg/dL (70-99) 100mg/dL (70-99) White Blood Count 7.1x10^3/uL (4.0-11.0) Red Blood Count 3.51x10^6/uL (4.30-5.70) Hemoglobin 10.3g/dL (13.0-17.5) Hematocrit 31.5% (39.0-53.0) Mean Corpuscular Volume 90fL (79-100) Mean Corpuscular Hemoglobin 29pg (25-35) Mean Corpuscular Hemoglobin Concent 33g/dL (31-37) Red Cell Distribution Width 17.4% (11.5-14.5) Platelet Count 134x10^3/uL (140-400) Neutrophils (%) (Auto) 77% (31-73) Lymphocytes (%) (Auto) 11% (24-48) Monocytes (%) (Auto) 10% (0-9) Eosinophils (%) (Auto) 2% (0-3) Basophils (%) (Auto) 1% (0-3) Neutrophils # (Auto) 5.4x10^3uL (1.8-7.7) Lymphocytes # (Auto) 0.8x10^3/uL (1.0-4.8) Monocytes # (Auto) 0.7x10^3/uL (0.0-1.1) Eosinophils # (Auto) 0.1x10^3/uL (0.0-0.7) Basophils # (Auto) 0.1x10^3/uL (0.0-0.2) Sodium Level 144mmol/L (136-145) Potassium Level 4.8mmol/L (3.5-5.1) Chloride Level 110mmol/L (98-107) Carbon Dioxide Level 26mmol/L (21-32) Anion Gap 8 (6-14) Blood Urea Nitrogen 33mg/dL (8-26) Creatinine 1.7mg/dL (0.7-1.3) Estimated GFR (Cockcroft-Gault) 39.1 BUN/Creatinine Ratio 19 (6-20) Glucose Level 116mg/dL (70-99) Calcium Level 7.9mg/dL (8.5-10.1) Total Bilirubin 0.9mg/dL (0.2-1.0) Aspartate Amino Transf (AST/SGOT) 20U/L (15-37) Alanine Aminotransferase (ALT/SGPT) 17U/L (16-63) Alkaline Phosphatase 49U/L (46-116) Total Protein 5.8g/dL (6.4-8.2) Albumin 3.1g/dL (3.4-5.0) Albumin/Globulin Ratio 1.1 (1.0-1.7) Test 05/02/16 11:44 Glucose (Fingerstick) 173mg/dL (70-99) BRANDY HERNANDEZ MD May 02, 2016 16:14
--- NOTE | 2016-05-02 16:37 | RAD ---
Renal ultrasound, 05/02/2016: History: Urinary retention Both renal regions were carefully scanned. The kidneys could not be visualized sonographically. The bladder was also not visualized. CT scanning should be considered for further evaluation, if clinically indicated.
[2016-05-02] MEDS: ACETAMINOPHEN 325 MG TABLET. PO PRN (18:07)
[2016-05-02 19:40] VITALS: BP 110/67
[2016-05-02] MEDS ORDERED: MAGNESIUM HYDROXIDE 2,400 MG/30 ML ORAL.SUSP. PO PRN (19:45)
[2016-05-02] MEDS ORDERED: SENNOSIDES 8.6 MG TABLET PO PRN (19:45)
[2016-05-02] MEDS: ZOLPIDEM 5 MG TABLET. PO PRN (20:17)
[2016-05-02] MEDS: AMOXICILLIN/K CLAV 875/125MG TABLET. PO SCH (20:18)
[2016-05-02 23:24] VITALS: BP 120/67
[2016-05-03 03:49] VITALS: BP 153/88
[2016-05-03] MEDS: IV NORMAL SALINE 1000ML BAG 1,000 ML IV SCH (03:57)
[2016-05-03 07:50] VITALS: BP 129/79
[2016-05-03] MEDS: INSULIN ASPART 300 UNITS/3 ML INSULN.PEN SQ SCH ×3 (08:00→17:03)
[2016-05-03 08:14] LABS: CALCIUM 8.1 mg/dL (8.5-10.1); CREATININE 1.5 mg/dL (0.7-1.3); GFR 45.1; POTASSIUM 5.1 mmol/L (3.5-5.1)
--- NOTE | 2016-05-03 08:31 | RAD ---
CT of the abdomen and pelvis without contrast, 05/02/2016: History: Renal failure Noncontrast scans were obtained as requested. Comparison is made to a study from 11/10/2013. There is mild linear atelectasis or scarring in the lung bases. The heart is enlarged. The unopacified liver shows no abnormality. No dense gallstones are seen. No pancreatic abnormality is detected. The spleen is of normal size. There is a 5.8 cm cyst arising from the lateral aspect of the right kidney. There is mild bilateral renal cortical scarring. The kidneys show no evidence of obstruction. No renal calculi are seen. The ureters are unremarkable. There is mild aortic calcific plaquing without evidence of aneurysm. No abdominal or pelvic adenopathy is seen. There is a new density at the right groin which cannot be from the common femoral artery or vein. It measures 2.7 cm. Has there been vascular surgery in this region? This could represent a small pseudoaneurysm. Inguinal adenopathy is less likely. A Hidalgo catheter is present in the collapsed urinary bladder. Bladder wall thickening is probably accentuated by its collapsed state. The bowel loops are not dilated. No free fluid or free air is evident in the abdomen or pelvis. There is moderate subcutaneous edema in the flank regions. IMPRESSION: 1. Mild bilateral renal cortical scarring. 2. No evidence of renal obstruction. 3. Right renal cyst. 4. Small right groin mass, possibly vascular. Sonographic evaluation is suggested, if clinically indicated. PQRS Compliance Statement: One or more of the following individualized dose reduction techniques were utilized for this examination: 1. Automated exposure control 2. Adjustment of the mA and/or kV according to patient size 3. Use of iterative reconstruction technique
[2016-05-03] MEDS: TAMSULOSIN 0.4 MG CAP.ER.24H. PO SCH (08:42)
[2016-05-03] MEDS: GLIMEPIRIDE 2 MG TABLET PO SCH (08:42)
[2016-05-03] MEDS: CARVEDILOL 12.5 MG TABLET PO SCH ×2 (08:42→16:18)
[2016-05-03] MEDS: APIXABAN 5 MG TABLET. PO SCH ×2 (08:42→20:24)
[2016-05-03] MEDS: AMOXICILLIN/K CLAV 875/125MG TABLET. PO SCH ×2 (08:42→20:24)
[2016-05-03] MEDS: METFORMIN 500 MG TABLET. PO SCH (08:42)
--- NOTE | 2016-05-03 09:15 | PDOC ---
SUBJECTIVE Subjective Pt. feeling ok OBJECTIVE Objective alexis in place. clear urine Vital Signs Vital Signs Date Time Temp Pulse Resp B/P Pulse Ox O2 Delivery O2 Flow Rate FiO2 05/03/16 08:42 80 129/79 05/03/16 07:50 97.8 80 20 129/79 96 Room Air 97.8 05/03/16 03:49 98.6 80 20 153/88 99 Room Air 98.6 05/02/16 23:24 98.6 79 16 120/67 93 Room Air 98.6 05/02/16 20:00 Room Air 05/02/16 19:40 96.6 80 16 110/67 93 Room Air 96.6 05/02/16 16:59 80 103/54 05/02/16 15:00 98.2 80 18 103/54 94 Room Air 98.2 05/02/16 11:00 97.9 80 16 127/69 98 Room Air 97.9 I & O Intake and Output 05/03/16 07:00 Intake Total 2332 ml Output Total 1425 ml Balance 907 ml Intake Oral 2070 ml IV Total 262 ml Output Urine Total 1425 ml PHYSICAL EXAM Physical Exam alexis to gravity CT-no hydro right groin mass ASSESSMENT/PLAN Assessment/Plan sono right groin keep alexis f/u urology 1-2 weeks for voiding trial Problems: COMMENT Lab Laboratory Tests Test 05/02/16 11:44 05/02/16 15:55 05/02/16 21:22 05/03/16 07:00 Glucose (Fingerstick) 173mg/dL (70-99) 147mg/dL (70-99) 183mg/dL (70-99) Sodium Level 141mmol/L (136-145) Potassium Level 5.1mmol/L (3.5-5.1) Chloride Level 108mmol/L (98-107) Carbon Dioxide Level 24mmol/L (21-32) Anion Gap 9 (6-14) Blood Urea Nitrogen 33mg/dL (8-26) Creatinine 1.5mg/dL (0.7-1.3) Estimated GFR (Cockcroft-Gault) 45.1 Glucose Level 105mg/dL (70-99) Calcium Level 8.1mg/dL (8.5-10.1) Test 05/03/16 07:52 Glucose (Fingerstick) 100mg/dL (70-99) BRANDY HERNANDEZ MD May 03, 2016 09:15
--- NOTE | 2016-05-03 10:25 | PDOC ---
CARDIO Progress Notes Date and Time Date of Service 05/03/2016 Time of Evaluation 1023 Subjective Subjective: No Chest Pain, No shortness of breath, No Palpitations, No Dizziness, Other (wants to leave) Vitals Vitals Vital Signs Date Time Temp Pulse Resp B/P Pulse Ox O2 Delivery O2 Flow Rate FiO2 05/03/16 08:42 80 129/79 05/03/16 08:00 Room Air 05/03/16 07:50 97.8 20 96 97.8 Weight Weight [ ] Input and Output Intake and Output Intake and Output 05/03/16 07:00 Intake Total 2332 ml Output Total 1425 ml Balance 907 ml Intake Oral 2070 ml IV Total 262 ml Output Urine Total 1425 ml Laboratory Labs Laboratory Tests Test 05/02/16 11:44 05/02/16 15:55 05/02/16 21:22 05/03/16 07:00 Glucose (Fingerstick) 173mg/dL (70-99) 147mg/dL (70-99) 183mg/dL (70-99) Sodium Level 141mmol/L (136-145) Potassium Level 5.1mmol/L (3.5-5.1) Chloride Level 108mmol/L (98-107) Carbon Dioxide Level 24mmol/L (21-32) Anion Gap 9 (6-14) Blood Urea Nitrogen 33mg/dL (8-26) Creatinine 1.5mg/dL (0.7-1.3) Estimated GFR (Cockcroft-Gault) 45.1 Glucose Level 105mg/dL (70-99) Calcium Level 8.1mg/dL (8.5-10.1) Test 05/03/16 07:52 Glucose (Fingerstick) 100mg/dL (70-99) Review of Systems Constitutional: yes: no symptom reported Physical Exam HEENT: Neck Supple W Full Motion Chest: Symmetric LUNGS: Other (posterior crackles about 1/2 up posteriorly) Heart: S1S2, RRR, other (tele: v-paced) Abdomen: Soft N/T (obese abdomen) Extremities: No Edema Neurology: alert, follow commands, other (about to sit self on the side of the bed today) Assessment Assessment 1. falls ? mechanical vs syncope 2. chronic CHF, systolic depressed LVEF @ 40-45% IVF per nephrology posterior crackles awaiting records from [facility] [place] 3. DM, II hypoglycemic on EMS presentation suspect this is likely etiology of issues per primary service 4. PPM brand unknown records requested interrogate if brand can be determined 5. PRANAY/CKD Cr improved Suspect pt would benefit from placement or SNF for a while; cardiology agreeable with transfer today; F/U WITH CARDIOLOGY IN 7 - 10 DAYS ADDENDUM: RECORDS FROM REVIEWED @ 1115 RECEIVED ONLY AN ECHO FROM 2009 WITHOUT SIGNIFICANT FINDINGS EKG FROM 01/2016 WITH V PACING ADDENDUM @ 1308: FURTHER RECORDS FROM AV NODE ABLATION 12/06/2015 FOR PERM ATRIAL FIB AND NICMP; RECURRENT SHOCKS DUE TO AFIB RVR [facility]'S ICD INTERROGATION 02/20/2016: VVI-ICD; HILARY 2.54 V; NO OTHER DATA INCLUDED HONG FUNG APRN May 03, 2016 10:25
--- NOTE | 2016-05-03 10:29 | RAD ---
INDICATION:right groin mass on CT-[facility] per radiologist's recommendation COMPARISON: 05/02/2016 FINDINGS: Focused ultrasound images obtained of right groin with grayscale and color spectral Doppler images obtained. Within the right groin Just anterior to the common femoral artery and vein there is a complex appearing masslike structure measuring approximately 38 x 22 mm without internal vascularity IMPRESSION: Complex appearing masslike structure adjacent to the right common femoral vessels without internal vascularity. Possible causes include a hematoma within the region although a thrombosed pseudoaneurysm is also within the differential. There is no definite vascular flow seen within but other causes such as a enlarged lymph node remains possible. Follow-up examination could be obtained in a couple months to ensure no growth.
[2016-05-03 11:10] VITALS: BP 124/73
--- NOTE | 2016-05-03 11:15 | PDOC ---
Renal-Progress Notes Subjective Notes Notes NONE History of Present Illness Hx of present illness STABLE Vitals Vitals Vital Signs Date Time Temp Pulse Resp B/P Pulse Ox O2 Delivery O2 Flow Rate FiO2 05/03/16 11:10 97.7 80 20 124/73 97 Room Air 97.7 Weight Weight [ ] I.O. Intake and Output Intake and Output 05/03/16 07:00 Intake Total 2332 ml Output Total 1425 ml Balance 907 ml Intake Oral 2070 ml IV Total 262 ml Output Urine Total 1425 ml Labs Labs Laboratory Tests Test 05/02/16 11:44 05/02/16 15:55 05/02/16 21:22 05/03/16 07:00 Glucose (Fingerstick) 173mg/dL (70-99) 147mg/dL (70-99) 183mg/dL (70-99) Sodium Level 141mmol/L (136-145) Potassium Level 5.1mmol/L (3.5-5.1) Chloride Level 108mmol/L (98-107) Carbon Dioxide Level 24mmol/L (21-32) Anion Gap 9 (6-14) Blood Urea Nitrogen 33mg/dL (8-26) Creatinine 1.5mg/dL (0.7-1.3) Estimated GFR (Cockcroft-Gault) 45.1 Glucose Level 105mg/dL (70-99) Calcium Level 8.1mg/dL (8.5-10.1) Test 05/03/16 07:52 Glucose (Fingerstick) 100mg/dL (70-99) Review of Systems Constitutional: yes: no symptom reported Physical Exam General Appearance: no apparent distress Skin: warm Respiratory: decreased breath sounds Heart: S1S2, RRR Abdomen: soft, bowel sounds present Extremities: pulses present Neurology: alert, follow commands, other (about to sit self on the side of the bed today) Assessment Assessment IMP TONEY HYPERKALEMIA-RESOLVED HYPERNATREMIA-RESOLVED [id number] DOWN TO 1.5 CKD STAGE 3 WITH CR OF 1.3 PLAN STOP IVF'S OK TO D/C FROM RENAL STANDPOINT [facility]OLOG[facility] FOLLOWING WILL FOLLOW DOMENIC SANTAMARIA MD May 03, 2016 11:15
--- NOTE | 2016-05-03 13:08 | PDOC2 ---
CONSULT Date of Consult Date of Consult DATE: 05/03/16 TIME: 12:32 Reason for Consult Reason for Consult: Right groin mass Referring Physician Referring Physician: Dr. Deepthi Do Identification/Chief Complaint Chief Complaint Confusion and frequent falls Source Source: Caregiver, Chart review, Patient History of Present Illness Reason for Visit: This is a pleasant 80-year-old male recently admitted for syncope, confusion and frequent falls. He has a complicated medical history of cardiac arrhythmia with placement of a permanent pacemaker/ICD, chronic kidney disease stage 3 and diabetes mellitus. Additionally, he has had urinary retention. A CT of the abdomen and pelvis was performed and an right groin mass was found. This prompted an ultrasound of the right groin which indicates a complex appearing mass adjacent to the right common femoral vessels without internal vascularity. The patient denies having had any recent surgery or arterial sticks in this area recently. He denies pain to the right groin or any difficulty with moving his right leg. Vascular Surgery has been consulted to provide evaluation and recommendation regarding this masslike structure. Past Medical History Cardiovascular: AFIB, Other (PPM - brand unknown) Pulmonary: No pertinent hx CENTRAL NERVOUS SYSTEM: Dementia Psych: No pertinent hx Renal/: Chronic renal insuff, UTI Endocrine: Diabetes Past Surgical History Past Surgical History: Pacemaker, Other (cystoscopy with circumsion - 08/2013) Family History Family History: Family History Unknown Social History No ALCOHOL: rare Drugs: None Lives: with Family () Current Problem List Problem List Problems Medical Problems: (1) CHF (congestive heart failure) Status: Acute (2) CHF (congestive heart failure) Status: Acute (3) Hyperkalemia Status: Acute (4) Hypernatremia Status: Acute (5) Recurrent falls Status: Acute Current Medications Current Medications Current Medications Calcium Gluconate 1,000 mg 1X ONCE IVP Last administered on 05/01/16 02:30; Start 05/01/16 at 02:30; Stop 05/01/16 at 02:31; Status DC Insulin Human Regular (Novolin R Vial) 10 unit 1X ONCE IV Last administered on 05/01/16 02:37; Start 05/01/16 at 02:30; Stop 05/01/16 at 02:31; Status DC Dextrose 25 gm 1X ONCE IV Last administered on 05/01/16 02:38; Start at 02:30; Stop 05/01/16 at 02:31; Status DC Furosemide (Lasix) 40 mg 1X ONCE IVP Last administered on 05/01/16 02:47; Start 05/01/16 at 02:30; Stop 05/01/16 at 02:31; Status DC Ondansetron HCl (Zofran) 4 mg PRN Q8HRS PRN IV NAUSEA/VOMITING; Start 05/01/16 at 02:45; Stop 05/02/16 at 02:44; Status DC Morphine Sulfate 2 mg PRN Q2HR PRN IV PAIN; Start 05/01/16 at 02:45; Stop 05/02 at 02:44; Status DC Acetaminophen (Tylenol) 650 mg PRN Q4HRS PRN PO FEVER Last administered on 05/01 21:26; Start 05/01/16 at 02:45; Stop 05/02/16 at 02:44; Status DC Insulin Aspart (Novolog) 0-7 UNITS TIDWMEALS SQ Last administered on 05/02/16 12:25; Start 05/01/16 at 08:00; Stop 05/02/16 at 14:04; Status DC Dextrose 12.5 gm PRN Q15MIN PRN IV SEE COMMENTS Last administered on 05/01/16 07:24; Start 05/01/16 at 02:45; Stop 05/02/16 at 14:04; Status DC Enoxaparin Sodium (Lovenox Per Pharmacy Prophylaxis Dosing) 1 each PRN DAILY PRN MC SEE COMMENTS; Start 05/01/16 at 11:15; Stop 05/01/16 at 14:55; Status DC Enoxaparin Sodium 40 mg 40 mg Q24H SQ ; Start 05/01/16 at 14:00; Stop 05/01/16 at 14:55; Status DC Sodium Chloride (Iv Sodium Chloride 0.9% 1000ml Bag) 1,000 ml @ 75 mls/hr [id number] IV Last administered on 05/03/16 03:57; Start 05/01/16 at 11:45; Stop 05/03/16 at 11:15; Status DC Lidocaine HCl (Glydo (Lidocaine) Jelly) 1 dhara 1X ONCE MM Last administered on 05/01/16 14:37; Start 05/01/16 at 13:15; Stop 05/01/16 at 13:50; Status DC Amoxicillin/ Clavulanate Potassium (Augmentin 875/ 125mg) 1 tab BID PO ; Start 05/01/16 at 21:00; Stop 05/01/16 at 21:00; Status DC Apixaban (Eliquis) 5 mg BID PO Last administered on 05/03/16 08:42; Start at 21:00 Carvedilol (Coreg) 12.5 mg BIDWMEALS PO Last administered on 05/03/16 08:42; Start 05/01/16 at 17:00 Lisinopril (Prinivil) 20 mg DAILY PO ; Start 05/02/16 at 09:00; Stop 05/02/16 at 09:00; Status DC Metformin HCl (Glucophage) 500 mg DAILY08 PO Last administered on 05/03/16 08: 42; Start 05/02/16 at 08:00 Zolpidem Tartrate (Ambien) 5 mg PRN QHS PRN PO INSOMNIA Last administered on 20:17; Start 05/01/16 at 15:00 Glimepiride (Amaryl) 4 mg DAILYWBKFT PO Last administered on 05/03/16 08:42; Start 05/02/16 at 08:00 Tamsulosin HCl (Flomax) 0.4 mg DAILY PO Last administered on 05/03/16 08:42; Start 05/02/16 at 09:00 Tamsulosin HCl (Flomax) 0.4 mg 1X ONCE PO Last administered on 05/01/16 18:08 ; Start 05/01/16 at 15:00; Stop 05/01/16 at 15:01; Status DC Info (Anti-Coagulation Monitoring By Pharmacy) 1 each PRN DAILY PRN MC SEE COMMENTS; Start 05/01/16 at 15:30 Insulin Aspart (Novolog) 0-9 UNITS TIDWMEALS SQ ; Start 05/02/16 at 17:00 Dextrose 12.5 gm PRN Q15MIN PRN IV SEE COMMENTS; Start 05/02/16 at 14:15 Amoxicillin/ Clavulanate Potassium (Augmentin 875/ 125mg) 1 tab BID PO Last administered on 05/03/16 08:42; Start 05/02/16 at 21:00 Acetaminophen (Tylenol) 650 mg PRN Q6HRS PRN PO MILD PAIN / TEMP Last administered on 05/02/16 18:07; Start 05/02/16 at 18:15 Sennosides (Senna) 17.2 mg PRN BID PRN PO CONSTIPATION Last administered on 20:17; Start 05/02/16 at 19:45 Magnesium Hydroxide (Milk Of Magnesia) 2,400 mg PRN DAILY PRN PO CONSTIPATION Last administered on 05/02/16 20:18; Start 05/02/16 at 19:45 Active Scripts Active Reported Eliquis (Apixaban) 5 Mg Tablet 5 Mg PO BID Carvedilol 12.5 Mg Tablet 12.5 Mg PO BID Lisinopril 20 Mg Tablet 20 Mg PO DAILY Zolpidem Tartrate 5 Mg Tablet 5 Mg PO PRN QHS PRN Glimepiride 4 Mg Tablet 4 Mg PO DAILY Metformin Hcl 500 Mg Tablet 500 Mg PO DAILY08 Allergies Allergies: Coded Allergies: No Known Drug Allergies (Unverified , 08/29/13) Physical Exam General: Alert, Oriented X3, No acute distress HEENT: Atraumatic, PERRLA, Other (No carotid bruit auscultated) Lungs: Normal air movement, Other (Posteriorly course bilaterally. No wheezing. No cough at this time.) Heart: No murmurs, Other (Irregularly irregular.) Abdomen: Normal bowel sounds, Soft, No tenderness, No hepatosplenomegaly Extremities: Other (Right groin without tenderness, palpable mass or thrill over femoral artery. No bruit auscultated. Mild generalized edema with bilateral 2-3+ lower extremity edema. Palpable bilateral radial pulses. Palpable right femoral pulse and dorsalis pedal pulses. Unable to palpate left femoral, popliteal or dorsalis pedal pulses.) Skin: Other (Multiple areas on back and arms of bruises, most likely from recent falls. No ecchymosis or discoloration to right groin. ) Neuro: Normal speech Psych/Mental Status: Mental status NL, Mood NL Vitals VITALS Vital Signs Date Time Temp Pulse Resp B/P Pulse Ox O2 Delivery O2 Flow Rate FiO2 05/03/16 11:10 97.7 80 20 124/73 97 Room Air 97.7 Labs Labs Laboratory Tests Test 05/01/16 15:00 2/15/17 16:41 05/01/16 20:57 05/02/16 04:32 Sodium Level 143mmol/L (136-145) 144mmol/L (136-145) Potassium Level 5.2mmol/L (3.5-5.1) 4.8mmol/L (3.5-5.1) Chloride Level 108mmol/L (98-107) 110mmol/L (98-107) Carbon Dioxide Level 26mmol/L (21-32) 26mmol/L (21-32) Anion Gap 9 (6-14) 8 (6-14) Blood Urea Nitrogen 35mg/dL (8-26) 33mg/dL (8-26) Creatinine 1.8mg/dL (0.7-1.3) 1.7mg/dL (0.7-1.3) Estimated GFR (Cockcroft-Gault) 36.6 39.1 Glucose Level 288mg/dL (70-99) 116mg/dL (70-99) Calcium Level 8.5mg/dL (8.5-10.1) 7.9mg/dL (8.5-10.1) Troponin I Quantitative 0.017ng/mL (0.000-0.055) Glucose (Fingerstick) 247mg/dL (70-99) 252mg/dL (70-99) White Blood Count 7.1x10^3/uL (4.0-11.0) Red Blood Count 3.51x10^6/uL (4.30-5.70) Hemoglobin 10.3g/dL (13.0-17.5) Hematocrit 31.5% (39.0-53.0) Mean Corpuscular Volume 90fL (79-100) Mean Corpuscular Hemoglobin 29pg (25-35) Mean Corpuscular Hemoglobin Concent 33g/dL (31-37) Red Cell Distribution Width 17.4% (11.5-14.5) Platelet Count 134x10^3/uL (140-400) Neutrophils (%) (Auto) 77% (31-73) Lymphocytes (%) (Auto) 11% (24-48) Monocytes (%) (Auto) 10% (0-9) Eosinophils (%) (Auto) 2% (0-3) Basophils (%) (Auto) 1% (0-3) Neutrophils # (Auto) 5.4x10^3uL (1.8-7.7) Lymphocytes # (Auto) 0.8x10^3/uL (1.0-4.8) Monocytes # (Auto) 0.7x10^3/uL (0.0-1.1) Eosinophils # (Auto) 0.1x10^3/uL (0.0-0.7) Basophils # (Auto) 0.1x10^3/uL (0.0-0.2) BUN/Creatinine Ratio 19 (6-20) Hemoglobin A1c 6.0% (4.8-5.6) Total Bilirubin 0.9mg/dL (0.2-1.0) Aspartate Amino Transf (AST/SGOT) 20U/L (15-37) Alanine Aminotransferase (ALT/SGPT) 17U/L (16-63) Alkaline Phosphatase 49U/L (46-116) Total Protein 5.8g/dL (6.4-8.2) Albumin 3.1g/dL (3.4-5.0) Albumin/Globulin Ratio 1.1 (1.0-1.7) Test 05/02/16 07:52 05/02/16 11:44 05/02/16 15:55 05/02/16 21:22 Glucose (Fingerstick) 100mg/dL (70-99) 173mg/dL (70-99) 147mg/dL (70-99) 183mg/dL (70-99) Test 05/03/16 07:00 05/03/16 07:52 05/03/16 11:24 Sodium Level 141mmol/L (136-145) Potassium Level 5.1mmol/L (3.5-5.1) Chloride Level 108mmol/L (98-107) Carbon Dioxide Level 24mmol/L (21-32) Anion Gap 9 (6-14) Blood Urea Nitrogen 33mg/dL (8-26) Creatinine 1.5mg/dL (0.7-1.3) Estimated GFR (Cockcroft-Gault) 45.1 Glucose Level 105mg/dL (70-99) Calcium Level 8.1mg/dL (8.5-10.1) Glucose (Fingerstick) 100mg/dL (70-99) 155mg/dL (70-99) Laboratory Tests Test 05/02/16 15:55 05/02/16 21:22 05/03/16 07:00 05/03/16 07:52 Glucose (Fingerstick) 147mg/dL (70-99) 183mg/dL (70-99) 100mg/dL (70-99) Sodium Level 141mmol/L (136-145) Potassium Level 5.1mmol/L (3.5-5.1) Chloride Level 108mmol/L (98-107) Carbon Dioxide Level 24mmol/L (21-32) Anion Gap 9 (6-14) Blood Urea Nitrogen 33mg/dL (8-26) Creatinine 1.5mg/dL (0.7-1.3) Estimated GFR (Cockcroft-Gault) 45.1 Glucose Level 105mg/dL (70-99) Calcium Level 8.1mg/dL (8.5-10.1) Test 05/03/16 11:24 Glucose (Fingerstick) 155mg/dL (70-99) Images Images REASON: right groin mass on CT-Sono per radiologist's reccomendation PROCEDURE: DUPLEX LOWER EX ARTERIAL RIGHT INDICATION:right groin mass on CT-[facility] per radiologist's recommendation COMPARISON: 05/02/2016 FINDINGS: Focused ultrasound images obtained of right groin with grayscale and color spectral Doppler images obtained. Within the right groin Just anterior to the common femoral artery and vein there is a complex appearing masslike structure measuring approximately 38 x 22 mm without internal vascularity IMPRESSION: Complex appearing masslike structure adjacent to the right common femoral vessels without internal vascularity. Possible causes include a hematoma within the region although a thrombosed pseudoaneurysm is also within the differential. There is no definite vascular flow seen within but other causes such as a enlarged lymph node remains possible. Follow-up examination could be obtained in a couple months to ensure no growth. PROCEDURE: ABDOMEN PELVIS WO CONTRAST CT of the abdomen and pelvis without contrast, 05/02/2016: History: Renal failure Noncontrast scans were obtained as requested. Comparison is made to a study from 11/10/2013. There is mild linear atelectasis or scarring in the lung bases. The heart is enlarged. The unopacified liver shows no abnormality. No dense gallstones are seen. No pancreatic abnormality is detected. The spleen is of normal size. There is a 5.8 cm cyst arising from the lateral aspect of the right kidney. There is mild bilateral renal cortical scarring. The kidneys show no evidence of obstruction. No renal calculi are seen. The ureters are unremarkable. There is mild aortic calcific plaquing without evidence of aneurysm. No abdominal or pelvic adenopathy is seen. There is a new density at the right groin which cannot be from the common femoral artery or vein. It measures 2.7 cm. Has there been vascular surgery in this region? This could represent a small pseudoaneurysm. Inguinal adenopathy is less likely. A Hidalgo catheter is present in the collapsed urinary bladder. Bladder wall thickening is probably accentuated by its collapsed state. The bowel loops are not dilated. No free fluid or free air is evident in the abdomen or pelvis. There is moderate subcutaneous edema in the flank regions. IMPRESSION: 1. Mild bilateral renal cortical scarring. 2. No evidence of renal obstruction. 3. Right renal cyst. 4. Small right groin mass, possibly vascular. Sonographic evaluation is suggested, if clinically indicated. Assessment/Plan Assessment/Plan 1. Right groin masslike structure. This mass most likely an enlarged lymph node. There is no internal vascularity to this mass, no palpable thrill or bruit auscultated. I have spoke to the patient's daughter and she confirms no surgical or arterial sticks in this area. This mass does not cause any discomfort to the patient. He is not febrile nor is there concern for an infectious process at this time. We would not recommend any surgical intervention at this time and most likely an inadvertent find. Would recommend a repeat ultrasound in 3-4 weeks to follow up to ensure this mass has not enlarged. 2. Syncope with frequent falls. Cardiology has been following and interrogation of pacemaker/ICD and review of previous records in progress. Etiology remains unclear. We will obtain a carotid artery ultrasound to rule out carotid artery disease. 3. Chronic kidney disease, stage 3, with hyperkalemia. Nephrology has been consulted and managing. Renal function has improved since admission. 4. Urinary retention. Urology has been consulted and following. Hidalgo catheter has been placed. 5. Possible peripheral arterial disease. Unable to palpate left femoral or distal pulses. The patient denies symptoms of claudication but describes symptoms more consistent with diabetic peripheral neuropathy. There are no non- healing ulcers or wounds on the patient's lower extremities. Patient is on Eliquis for cardiac arrhythmia. Adding daily antiplatelet therapy with aspirin could be considered, however, patient's frequent falls and syncope does increase the risk for bleeding. Will wait for the results of the carotid ultrasound to advise further. Thank you for the opportunity to participate in the care of this patient. Dr. Bronson will provide additional recommendation as needed. RENETTA VALDIVIA APRN May 03, 2016 13:08
--- NOTE | 2016-05-03 13:31 | PDOC ---
PROGRESS NOTES Chief Complaint Chief Complaint falls, syncope metabolic encephalopathy, acute, resolved hypoglycemia, resolved acute on chronic CKD, vasomotor hyperkalemia, hypernatremia, obeisty, BMI 34.6 History of Present Illness History of Present Illness NO issues BS good No more hypoglycemia PT recs [facility] - needs 1 more MN then will go to [facility] on sat Pt agreebale to [facility] R sono ordered by urology today PLAN: ff up sono R groin [facility] Vitals Vitals Vital Signs Date Time Temp Pulse Resp B/P Pulse Ox O2 Delivery O2 Flow Rate FiO2 05/03/16 11:10 97.7 80 20 124/73 97 Room Air 97.7 Physical Exam General: Alert, Oriented X3, No acute distress Heart: No murmurs, Other (Irregularly irregular.) Lungs: Clear Abdomen: Normal bowel sounds, Soft, No tenderness, No hepatosplenomegaly Extremities: Other (Right groin without tenderness, palpable mass or thrill over femoral artery. No bruit auscultated. Mild generalized edema with bilateral 2-3+ lower extremity edema. Palpable bilateral radial pulses. Palpable right femoral pulse and dorsalis pedal pulses. Unable to palpate left femoral, popliteal or dorsalis pedal pulses.) Skin: Other (Multiple areas on back and arms of bruises, most likely from recent falls. No ecchymosis or discoloration to right groin. ) Labs LABS Laboratory Tests Test 05/02/16 15:55 05/02/16 21:22 05/03/16 07:00 05/03/16 07:52 Glucose (Fingerstick) 147mg/dL (70-99) 183mg/dL (70-99) 100mg/dL (70-99) Sodium Level 141mmol/L (136-145) Potassium Level 5.1mmol/L (3.5-5.1) Chloride Level 108mmol/L (98-107) Carbon Dioxide Level 24mmol/L (21-32) Anion Gap 9 (6-14) Blood Urea Nitrogen 33mg/dL (8-26) Creatinine 1.5mg/dL (0.7-1.3) Estimated GFR (Cockcroft-Gault) 45.1 Glucose Level 105mg/dL (70-99) Calcium Level 8.1mg/dL (8.5-10.1) Test 05/03/16 11:24 Glucose (Fingerstick) 155mg/dL (70-99) Review of Systems Review of Systems no soa, cp, abd pain, emesis, diarrhea Assessment and Plan Assessmemt and Plan Problems Medical Problems: (1) CHF (congestive heart failure) Status: Acute (2) CHF (congestive heart failure) Status: Acute (3) Hyperkalemia Status: Acute (4) Hypernatremia Status: Acute (5) Recurrent falls Status: Acute Problems: Comment Review of Relevant I have reviewed the following items marcel (where applicable) has been applied. Labs Laboratory Tests Test 05/01/16 15:00 05/01/16 16:41 05/01/16 20:57 05/02/16 04:32 Sodium Level 143mmol/L (136-145) 144mmol/L (136-145) Potassium Level 5.2mmol/L (3.5-5.1) 4.8mmol/L (3.5-5.1) Chloride Level 108mmol/L (98-107) 110mmol/L (98-107) Carbon Dioxide Level 26mmol/L (21-32) 26mmol/L (21-32) Anion Gap 9 (6-14) 8 (6-14) Blood Urea Nitrogen 35mg/dL (8-26) 33mg/dL (8-26) Creatinine 1.8mg/dL (0.7-1.3) 1.7mg/dL (0.7-1.3) Estimated GFR (Cockcroft-Gault) 36.6 39.1 Glucose Level 288mg/dL (70-99) 116mg/dL (70-99) Calcium Level 8.5mg/dL (8.5-10.1) 7.9mg/dL (8.5-10.1) Troponin I Quantitative 0.017ng/mL (0.000-0.055) Glucose (Fingerstick) 247mg/dL (70-99) 252mg/dL (70-99) White Blood Count 7.1x10^3/uL (4.0-11.0) Red Blood Count 3.51x10^6/uL (4.30-5.70) Hemoglobin 10.3g/dL (13.0-17.5) Hematocrit 31.5% (39.0-53.0) Mean Corpuscular Volume 90fL (79-100) Mean Corpuscular Hemoglobin 29pg (25-35) Mean Corpuscular Hemoglobin Concent 33g/dL (31-37) Red Cell Distribution Width 17.4% (11.5-14.5) Platelet Count 134x10^3/uL (140-400) Neutrophils (%) (Auto) 77% (31-73) Lymphocytes (%) (Auto) 11% (24-48) Monocytes (%) (Auto) 10% (0-9) Eosinophils (%) (Auto) 2% (0-3) Basophils (%) (Auto) 1% (0-3) Neutrophils # (Auto) 5.4x10^3uL (1.8-7.7) Lymphocytes # (Auto) 0.8x10^3/uL (1.0-4.8) Monocytes # (Auto) 0.7x10^3/uL (0.0-1.1) Eosinophils # (Auto) 0.1x10^3/uL (0.0-0.7) Basophils # (Auto) 0.1x10^3/uL (0.0-0.2) BUN/Creatinine Ratio 19 (6-20) Hemoglobin A1c 6.0% (4.8-5.6) Total Bilirubin 0.9mg/dL (0.2-1.0) Aspartate Amino Transf (AST/SGOT) 20U/L (15-37) Alanine Aminotransferase (ALT/SGPT) 17U/L (16-63) Alkaline Phosphatase 49U/L (46-116) Total Protein 5.8g/dL (6.4-8.2) Albumin 3.1g/dL (3.4-5.0) Albumin/Globulin Ratio 1.1 (1.0-1.7) Test 05/02/16 07:52 05/02/16 11:44 05/02/16 15:55 05/02/16 21:22 Glucose (Fingerstick) 100mg/dL (70-99) 173mg/dL (70-99) 147mg/dL (70-99) 183mg/dL (70-99) Test 05/03/16 07:00 05/03/16 07:52 05/03/16 11:24 Sodium Level 141mmol/L (136-145) Potassium Level 5.1mmol/L (3.5-5.1) Chloride Level 108mmol/L (98-107) Carbon Dioxide Level 24mmol/L (21-32) Anion Gap 9 (6-14) Blood Urea Nitrogen 33mg/dL (8-26) Creatinine 1.5mg/dL (0.7-1.3) Estimated GFR (Cockcroft-Gault) 45.1 Glucose Level 105mg/dL (70-99) Calcium Level 8.1mg/dL (8.5-10.1) Glucose (Fingerstick) 100mg/dL (70-99) 155mg/dL (70-99) Laboratory Tests Test 05/02/16 15:55 05/02/16 21:22 05/03/16 07:00 05/03/16 07:52 Glucose (Fingerstick) 147mg/dL (70-99) 183mg/dL (70-99) 100mg/dL (70-99) Sodium Level 141mmol/L (136-145) Potassium Level 5.1mmol/L (3.5-5.1) Chloride Level 108mmol/L (98-107) Carbon Dioxide Level 24mmol/L (21-32) Anion Gap 9 (6-14) Blood Urea Nitrogen 33mg/dL (8-26) Creatinine 1.5mg/dL (0.7-1.3) Estimated GFR (Cockcroft-Gault) 45.1 Glucose Level 105mg/dL (70-99) Calcium Level 8.1mg/dL (8.5-10.1) Test 05/03/16 11:24 Glucose (Fingerstick) 155mg/dL (70-99) Medications Current Medications Calcium Gluconate 1,000 mg 1X ONCE IVP Last administered on 05/01/16 02:30; Start 05/01/16 at 02:30; Stop 05/01/16 at 02:31; Status DC Insulin Human Regular (Novolin R Vial) 10 unit 1X ONCE IV Last administered on 05/01/16 02:37; Start 05/01/16 at 02:30; Stop 05/01/16 at 02:31; Status DC Dextrose 25 gm 1X ONCE IV Last administered on 05/01/16 02:38; Start at 02:30; Stop 05/01/16 at 02:31; Status DC Furosemide (Lasix) 40 mg 1X ONCE IVP Last administered on 05/01/16 02:47; Start 05/01/16 at 02:30; Stop 05/01/16 at 02:31; Status DC Ondansetron HCl (Zofran) 4 mg PRN Q8HRS PRN IV NAUSEA/VOMITING; Start 05/01/16 at 02:45; Stop 05/02/16 at 02:44; Status DC Morphine Sulfate 2 mg PRN Q2HR PRN IV PAIN; Start 05/01/16 at 02:45; Stop 05/02 at 02:44; Status DC Acetaminophen (Tylenol) 650 mg PRN Q4HRS PRN PO FEVER Last administered on 05/01 21:26; Start 05/01/16 at 02:45; Stop 05/02/16 at 02:44; Status DC Insulin Aspart (Novolog) 0-7 UNITS TIDWMEALS SQ Last administered on 05/02/16 12:25; Start 05/01/16 at 08:00; Stop 05/02/16 at 14:04; Status DC Dextrose 12.5 gm PRN Q15MIN PRN IV SEE COMMENTS Last administered on 05/01/16 07:24; Start 05/01/16 at 02:45; Stop 05/02/16 at 14:04; Status DC Enoxaparin Sodium (Lovenox Per Pharmacy Prophylaxis Dosing) 1 each PRN DAILY PRN MC SEE COMMENTS; Start 05/01/16 at 11:15; Stop 05/01/16 at 14:55; Status DC Enoxaparin Sodium 40 mg 40 mg Q24H SQ ; Start 05/01/16 at 14:00; Stop 05/01/16 at 14:55; Status DC Sodium Chloride (Iv Sodium Chloride 0.9% 1000ml Bag) 1,000 ml @ 75 mls/hr [id number] IV Last administered on 05/03/16 03:57; Start 05/01/16 at 11:45; Stop 05/03/16 at 11:15; Status DC Lidocaine HCl (Glydo (Lidocaine) Jelly) 1 dhara 1X ONCE MM Last administered on 05/01/16 14:37; Start 05/01/16 at 13:15; Stop 05/01/16 at 13:50; Status DC Amoxicillin/ Clavulanate Potassium (Augmentin 875/ 125mg) 1 tab BID PO ; Start 05/01/16 at 21:00; Stop 05/01/16 at 21:00; Status DC Apixaban (Eliquis) 5 mg BID PO Last administered on 05/03/16 08:42; Start at 21:00 Carvedilol (Coreg) 12.5 mg BIDWMEALS PO Last administered on 05/03/16 08:42; Start 05/01/16 at 17:00 Lisinopril (Prinivil) 20 mg DAILY PO ; Start 05/02/16 at 09:00; Stop 05/02/16 at 09:00; Status DC Metformin HCl (Glucophage) 500 mg DAILY08 PO Last administered on 05/03/16 08: 42; Start 05/02/16 at 08:00 Zolpidem Tartrate (Ambien) 5 mg PRN QHS PRN PO INSOMNIA Last administered on 20:17; Start 05/01/16 at 15:00 Glimepiride (Amaryl) 4 mg DAILYWBKFT PO Last administered on 05/03/16 08:42; Start 05/02/16 at 08:00 Tamsulosin HCl (Flomax) 0.4 mg DAILY PO Last administered on 05/03/16 08:42; Start 05/02/16 at 09:00 Tamsulosin HCl (Flomax) 0.4 mg 1X ONCE PO Last administered on 05/01/16 18:08 ; Start 05/01/16 at 15:00; Stop 05/01/16 at 15:01; Status DC Info (Anti-Coagulation Monitoring By Pharmacy) 1 each PRN DAILY PRN [facility] SEE COMMENTS; Start 05/01/16 at 15:30 Insulin Aspart (Novolog) 0-9 UNITS TIDWMEALS SQ ; Start 05/02/16 at 17:00 Dextrose 12.5 gm PRN Q15MIN PRN IV SEE COMMENTS; Start 05/02/16 at 14:15 Amoxicillin/ Clavulanate Potassium (Augmentin 875/ 125mg) 1 tab BID PO Last administered on 05/03/16 08:42; Start 05/02/16 at 21:00 Acetaminophen (Tylenol) 650 mg PRN Q6HRS PRN PO MILD PAIN / TEMP Last administered on 05/02/16 18:07; Start 05/02/16 at 18:15 Sennosides (Senna) 17.2 mg PRN BID PRN PO CONSTIPATION Last administered on 20:17; Start 05/02/16 at 19:45 Magnesium Hydroxide (Milk Of Magnesia) 2,400 mg PRN DAILY PRN PO CONSTIPATION Last administered on 05/02/16 20:18; Start 05/02/16 at 19:45 Active Scripts Active Reported Eliquis (Apixaban) 5 Mg Tablet 5 Mg PO BID Carvedilol 12.5 Mg Tablet 12.5 Mg PO BID Lisinopril 20 Mg Tablet 20 Mg PO DAILY Zolpidem Tartrate 5 Mg Tablet 5 Mg PO PRN QHS PRN Glimepiride 4 Mg Tablet 4 Mg PO DAILY Metformin Hcl 500 Mg Tablet 500 Mg PO DAILY08 Vitals/I & O Vital Sign - Last 24 Hours 05/02/16 05/02/16 05/02/16 05/02/16 15:00 16:59 19:40 20:00 Temp 98.2 96.6 98.2 96.6 Pulse 80 80 80 Resp 18 16 B/P 103/54 103/54 110/67 Pulse Ox 94 93 O2 Delivery Room Air Room Air Room Air 05/02/16 05/03/16 05/03/16 05/03/16 23:24 03:49 07:50 08:00 Temp 98.6 98.6 97.8 98.6 98.6 97.8 Pulse 79 80 80 Resp 16 20 20 B/P 120/67 153/88 129/79 Pulse Ox 93 99 96 O2 Delivery Room Air Room Air Room Air Room Air 05/03/16 05/03/16 08:42 11:10 Temp 97.7 97.7 Pulse 80 80 Resp 20 B/P 129/79 124/73 Pulse Ox 97 O2 Delivery Room Air Intake and Output 05/02/16 05/02/16 05/03/16 15:00 23:00 07:00 Intake Total 540 ml 1512 ml 280 ml Output Total 800 ml 625 ml Balance 540 ml 712 ml -345 ml MARIA EUGENIA MATHIS MD May 03, 2016 13:31
[2016-05-03 15:07] VITALS: BP 138/72
[2016-05-03 19:45] VITALS: BP 133/75
[2016-05-03] MEDS: ZOLPIDEM 5 MG TABLET. PO PRN (20:24)
[2016-05-03] MEDS: ACETAMINOPHEN 325 MG TABLET. PO PRN (20:24)
[2016-05-03 23:47] VITALS: BP 123/85
[2016-05-04 07:00] VITALS: BP 128/69
[2016-05-04] MEDS: INSULIN ASPART 300 UNITS/3 ML INSULN.PEN SQ SCH ×2 (08:00→12:00)
[2016-05-04] MEDS: METFORMIN 500 MG TABLET. PO SCH (09:53)
[2016-05-04] MEDS: AMOXICILLIN/K CLAV 875/125MG TABLET. PO SCH (09:54)
[2016-05-04] MEDS: GLIMEPIRIDE 2 MG TABLET PO SCH (09:54)
[2016-05-04] MEDS: APIXABAN 5 MG TABLET. PO SCH (09:54)
[2016-05-04] MEDS: CARVEDILOL 12.5 MG TABLET PO SCH (09:54)
[2016-05-04] MEDS: TAMSULOSIN 0.4 MG CAP.ER.24H. PO SCH (09:55)
--- NOTE | 2016-05-04 10:22 | RAD ---
Indication fall. Suspect TIA. Grayscale color Doppler and spectral imaging was performed. Examination was targeted to the carotid bifurcations. On the right there is some slight plaquing. The color Doppler images do not suggest significant turbulence. The common carotid waveform and velocities are normal. The external carotid has a normal appearance. The internal carotid waveform and velocities are normal. The vertebral is patent and demonstrates normal directional flow. On the left there is some minimal plaquing similar to the contralateral side. The color Doppler images do not suggest significant turbulence. The common carotid waveform and velocities are normal. The external carotid has a normal appearance. The internal carotid waveform and velocities are normal. The vertebral is patent patent and demonstrates normal directional flow. IMPRESSION: Minimal plaquing at the carotid bifurcations. No evidence of hemodynamically significant stenosis at either carotid bifurcation. Stenosis 0-50%. Note: Stenosis calculations for CT, MR and conventional angiography are based upon determination of the distal ICA diameter in accordance with the NASCET methodology. Stenosis calculations for doppler studies are derived from validated velocity criteria which are known to correlate with NASCET methodology of determining stenosis.
[2016-05-04 11:50] VITALS: BP 120/71
== END 2016-05-04 13:45 | DRG 682 ==
LOC: ER 22:04 → 6 SOUTH 05-01 02:42
PROVIDERS: ADMIT Internal Medicine; ATTEND Internal Medicine
DX: N17.0 Acute kidney failure with tubular necrosis (principal); I50.43 Acute on chronic combined systolic (congestive) and diastolic (congestive) heart failure; G93.41 Metabolic encephalopathy; E87.0 Hyperosmolality and hypernatremia; J98.11 Atelectasis; E11.22 Type 2 diabetes mellitus with diabetic chronic kidney disease; E11.649 Type 2 diabetes mellitus with hypoglycemia without coma; E87.5 Hyperkalemia; F03.90 Unspecified dementia, unspecified severity, without behavioral disturbance, psychotic disturbance, mood disturbance, and anxiety; I48.91 Unspecified atrial fibrillation; N13.9 Obstructive and reflux uropathy, unspecified; N18.3 Chronic kidney disease, stage 3 (moderate); N28.1 Cyst of kidney, acquired; N32.0 Bladder-neck obstruction; R29.6 Repeated falls; E66.9 Obesity, unspecified; W18.39XA Other fall on same level, initial encounter; Y93.89 Activity, other specified; Z95.810 Presence of automatic (implantable) cardiac defibrillator; Y92.89 Other specified places as the place of occurrence of the external cause; Y99.8 Other external cause status; Z68.34 Body mass index [BMI] 34.0-34.9, adult; Z87.440 Personal history of urinary (tract) infections; Z79.899 Other long term (current) drug therapy
CPT/HCPCS: 36415; 70450; 71010; 72125; 74176; 76770; 80048; 80053; 80076; 81001; 82947; 83036; 83735; 83880; 84443; 84484; 85027; 93005; 93306; 93880; 93926; 96374; 96375; J0610; J1815; J1940; J7030; J7042; 97116; 97530; 97535; 99285-25

== ENCOUNTER → 2016-05-14 | Outpatient (CLI) | payer MEDICARE ==
[2016-05-04 11:50] VITALS: BP 120/71
[~2016-05-14] MED LIST changes: +APIX5TAB PO; -ZOLP5TAB4 PO; +ZOLP5TAB5 PO
--- NOTE | 2016-05-14 15:58 | RAD ---
Renal ultrasound, 05/14/2016: History: Urinary retention The left kidney measures 10.1 cm in length. There is no evidence of hydronephrosis or a renal mass. The right kidney was not visible, presumably due to overlying bowel. The bladder could not be visualized. This would suggest that it is nondistended. IMPRESSION: 1. No significant left renal abnormality is detected. 2. Nonvisualization of the right kidney and urinary bladder.
== END | disposition home or self-care (01) ==
LOC: US 14:35
PROVIDERS: ATTEND Nurse Practitioner Occupational Health
DX: R33.9 Retention of urine, unspecified (principal)
CPT/HCPCS: 76770